=== PATIENT | male | born 1950 | race Caucasian/White ===

== ENCOUNTER 2021-09-21 18:32 | Inpatient (IN) | payer OTHER ==
[2021-09-21] MEDS ORDERED: NA CHLORIDE 0.9% 1,000 ML ONE (19:34)
[2021-09-21] MEDS ORDERED: ONDANSETRON 4 MG/2 ML VIAL ONE (19:34)
[2021-09-21 20:34] LABS: Lymphocytes % 9.3 % (15.3-44.8); MCV 97.3 fL (80-100); RBC Red Blood Cell Count 4.93 M/uL (4.33-5.43)
--- NOTE | 2021-09-21 20:38 | RAD REPORT ---
EXAM DESCRIPTION: RAD - Chest Single View - 09/21/2021 8:24 pm CLINICAL HISTORY: COUGH COMPARISON: No comparisons FINDINGS: Lines: None. Lungs: No evidence of edema or pneumonia. Low lung volumes limits evaluation of the lung bases. . Pleural: No significant pleural effusions or pneumothorax. Cardiac: The heart size is within normal limits. Bones: No acute fractures. ACDF in the cervical spine. Other: Pacemaker IMPRESSION: Low lung volumes but no definite acute abnormality identified.
[2021-09-21 20:55] LABS: Bilirubin Total 0.8 mg/dL (0.2-1.0); Potassium 3.4 mmol/L (3.5-5.1); Protein, Total 8.4 g/dL (6.4-8.2); Troponin High Sensitivity 5.4 pg/mL (<58.9)
[2021-09-21] MEDS ORDERED: PROMETHAZINE INJ 25 MG/ML AMP ONE ×2 (21:29→23:02)
--- NOTE | 2021-09-21 22:10 | RAD REPORT ---
EXAM DESCRIPTION: CTAbdomen Pelvis W Contrast - 09/21/2021 9:51 pm CLINICAL HISTORY: Abdominal pain, acute, nonlocalized COMPARISON: No comparisons TECHNIQUE: CT of the abdomen and pelvis was performed. All CT scans are performed using dose optimization technique as appropriate and may include automated exposure control or mA/KV adjustment according to patient size. FINDINGS: Lower chest: Multi-vessel coronary artery disease. Mild circumferential thickened distal e sophagus. Liver: No acute abnormality or suspicious lesions. Biliary: No biliary ductal dilatation. Stomach: No significant focal abnormality. Duodenum: No significant focal abnormality. Pancreas: No significant abnormality. Spleen: No significant abnormality. Adrenal: No suspicious lesions. Kidney/ureter: No hydronephrosis. No renal calculi. Retroperitoneum: No retroperitoneal adenopathy. Vascular: 3.2 cm infrarenal abdominal aortic aneurysm. Atherosclerosis . Bowel: No significant focal abnormality. Peritoneum: No ascites or free air. Small fat containing inguinal hernias. Bladder: Partially eccentric circumferential bladder wall thickening. This may be related to chronic bladder outlet obstruction or chronic infection or inflammation. Reproductive: No adnexal masses. Bones: No acute fracture. L4-L5 fusion. Other: Epidural pain pump in the right hemiabdomen. IMPRESSION: No acute intra-abdominal or pelvic finding. Moderately thickened distal esophagus which may reflect esophagitis. Endoscopy could better evaluate. Other incidental findings as noted above.
[2021-09-21] MEDS ORDERED: PANTOPRAZOLE 40 MG INJ ONE (23:02)
[2021-09-21 23:23] LABS: Urine Blood 1+ (Negative); Urine Glucose Trace (Negative); Urine Protein 2+ (Negative); Urine pH 5.5 (5.0-7.0)
--- NOTE | 2021-09-22 00:30 | EDPHYS ---
Physician Documentation [facility] Name: Edison Sow Age: 71 yrs Sex: Male : 1950 Arrival Date: 09/21/2021 Time: 19:06 Bed 30 Private MD: ED Physician Fredi Curtis HPI: 09/21 19:48 This 71 yrs old Male presents to ER via Unassigned with complaints of Abdominal Pain, rn nausea/vomiting/diarrhea. 19:48 The patient presents to the emergency department with nausea, vomiting, diarrhea, rn abdominal pain. Onset: The symptoms/episode began/occurred today. Possible causes: unknown. The symptoms are aggravated by nothing. The symptoms are alleviated by nothing. Associated signs and symptoms: Pertinent positives: abdominal pain, diarrhea, nausea, vomiting, Pertinent negatives: fever, GI bleeding. Severity of symptoms: At their worst the symptoms were moderate in the emergency department the symptoms are unchanged. The patient has not experienced similar symptoms in the past. The patient has not recently seen a physician. Pt reports 1 day of nausea/vomiting/diarrhea, generalized weakness and malaise. No sick contacts. not sick at home. + abd cramping. Reports had mild chest pain earlier today as well. NO sob. + cough.. Historical: - Allergies: 20:13 Jkguvqs-KUK-[id number] Reductase Inhibitors; eb1 - Immunization history:: Adult Immunizations up to date. - Family history:: not pertinent. - Social history:: Patient/guardian denies using Smoking status: unknown. - Hospitalizations: : No recent hospitalization is reported. ROS: 19:48 Constitutional: + chills and myalgias Eyes: Negative for injury, pain, redness, and internal medicine nurse, Neck: Negative for injury, pain, and swelling, Cardiovascular: Negative for palpitations, and edema, Respiratory: Negative for shortness of breath, wheezing, and pleuritic chest pain, Abdomen/GI: Negative for constipation Back: Negative for injury and pain, : Negative for injury, bleeding, discharge, and swelling, MS/Extremity: Negative for injury and deformity, Skin: Negative for injury, rash, and discoloration, Neuro: Negative for numbness, tingling, and seizure. Exam: 19:48 Constitutional: This is a well developed, well nourished patient who is awake, alert, rn and in no acute distress. HOlding emesis bag, shaking. Head/Face: Normocephalic, atraumatic. Eyes: Periorbital areas with no swelling, redness, or edema. ENT: dry MM Neck: Trachea midline, no thyromegaly or masses palpated, and no cervical lymphadenopathy. Supple, full range of motion without nuchal rigidity, or vertebral point tenderness. No Meningismus. Cardiovascular: Tachycardic, regular. No pulse deficits. Respiratory: No increased work of breathing, no retractions or nasal flaring. Abdomen/GI: Soft, mild mid abd tenderness, no rebound Skin: Warm, dry MS/ Extremity: Pulses equal, no cyanosis. Neuro: Awake and alert, GCS 15, oriented to person, place, time, and situation. Cranial nerves II-XII grossly intact. Motor strength 4/5 in all extremities. Sensory grossly intact. Vital Signs: 20:12 BP 160 / 88; Pulse 84; Resp 18; Temp 99.6; Pulse Ox 98% ; Pain 5/10; eb1 22:30 BP 155 / 70; Pulse 90; Resp 20; Temp 99.2; Pulse Ox 96% ; eb1 23:48 Pulse 86; Resp 18; Temp 99.0; Pulse Ox 95% ; eb1 09/22 02:00 BP 144 / 90; Pulse 83; Resp 20; Temp 99.0; Pulse Ox 100% ; Pain 0/10; eb1 MDM: 09/21 19:07 Patient medically screened. rn 22:54 ED course: Pt still throwing up, dark brown emesis, no blood. Will send for rn Gastroccult. H/H normal. states long hx of acid problems, supposed to take omeprazole but only takes it as needed. . 09/22 00:26 Differential diagnosis: gastritis, esophagitis, gastritis, ulceration, UGIB. Data rn reviewed: vital signs, nurses notes, lab test result(s), radiologic studies, CT scan, and as a result, I will admit patient. Counseling: I had a detailed discussion with the patient and/or guardian regarding: the historical points, exam findings, and any diagnostic results supporting the discharge/admit diagnosis, lab results, radiology results, the need to transfer to another facility, for higher level of care, [facility] does not immediately have the required specialist. Response to treatment: There is no appreciated change of the patient's symptoms at this time. ED course: Pt still throwing up, Gastroccult + for blood, dark emesis, no gross blood here, states EMS told her they saw blood in emesis when they picked him up. Will have to transfer given no GI here, intractable vomiting, and coffee ground emesis. . 00:52 ED course: Spoke with hospitalist at [facility], does not think this warrants a turn supervisor, states does not need GI consultation emergently and can be medically managed. Requests patient be admitted to our hospital and that transfer canceled. . 09/21 19:15 Order name: CBC with Diff; Complete Time: :45 09/21 19:15 Order name: CMP; Complete Time: :45 09/21 19:15 Order name: Lipase; Complete Time: :45 09/21 19:15 Order name: Urine Microscopic Only; Complete Time: 00:57 09/21 19:15 Order name: SARS-COV-2 RT PCR (Document "Date of Onset" if Symptomatic); Complete Time: rn :45 09/21 19:15 Order name: Flu; Complete Time: :45 09/21 19:15 Order name: CT Abd/Pelvis - IV Contrast Only; Complete Time: 22:15 09/21 19:15 Order name: Troponin High Sensitivity; Complete Time: :45 09/21 19:15 Order name: XRAY Chest (1 view); Complete Time: 21:45 09/21 23:23 Order name: Urine Dipstick-Ancillary; Complete Time: 23:28 EDND 09/22 00:12 Order name: Gastric Occult Blood; Complete Time: 00:22 [facility] 09/22 01:21 Order name: CT Head Brain wo Cont rn 09/21 19:15 Order name: IV Saline Lock; Complete Time: 19:39 rn 09/21 19:15 Order name: Labs collected and sent; Complete Time: 20:27 rn 09/21 19:15 Order name: Urine Dipstick-Ancillary (obtain specimen); Complete Time: 23:25 rn 09/21 19:15 Order name: EKG; Complete Time: 19:15 rn 09/21 19:15 Order name: EKG - Nurse/Tech; Complete Time: 23:24 rn 09/21 19:15 Order name: O2 Sat Monitoring; Complete Time: : rn 09/21 19:15 Order name: Cardiac monitoring; Complete Time: : rn 09/21 22:50 Order name: Gastrocult; Complete Time: 23:24 rn Administered Medications: 09/21 19:35 Drug: Zofran (Ondansetron) 4 mg Route: IVP; Site: left antecubital; eb1 22:45 Follow up: Response: Nausea is decreased eb1 19:35 Drug: NS 0.9% 1000 ml Route: IV; Rate: 1000 ml; Site: left antecubital; eb1 21:32 Drug: Phenergan (promethazine) 12.5 mg Route: IVP; Site: left antecubital; eb1 22:44 Follow up: Response: Nausea unchanged eb1 23:02 Drug: ProTONIX (pantoprazole) 40 mg Route: IVP; Site: left antecubital; eb1 23:49 Follow up: Response: Nausea is decreased eb1 23:03 Drug: Phenergan (promethazine) 12.5 mg Route: IVP; Site: left antecubital; eb1 23:49 Follow up: Response: Nausea is decreased eb1 09/22 01:19 Drug: ProTONIX (pantoprazole) 8 mg/hr Route: IV; Rate: 25 ml/hr; Site: left antecubital;eb1 01:39 Drug: Demerol (meperidine) 25 mg Route: IVP; Site: left antecubital; eb1 02:11 Follow up: Response: Pain is decreased eb1 01:39 Drug: Tylenol 650 mg Route: PO; eb1 02:11 Follow up: Response: Pain is decreased eb1 Disposition Summary: 09/22/21 01:00 Hospitalization Ordered Hospitalization Status: Observation rn Provider: Jerman Curtis rn Location: Telemetry/MedSurg (observation) rn Condition: Stable(09/22/21 01:00) rn Problem: new(09/22/21 01:00) rn Symptoms: have improved(09/22/21 01:00) rn Bed/Room Type: Standard rn Room Assignment: 201(09/22/21 02:40) cg Diagnosis - Intractable vomiting rn - Esophagitis, unspecified rn - Gastro-esophageal reflux disease with esophagitis rn Forms: - Medication Reconciliation Form rn - SBAR form rn Signatures: Dispatcher [employer] EDMS Fredi Curtis MD MD rn Garcia, Cindy, RN RN cg Basinger, Emily RN RN eb1 Corrections: (The following items were deleted from the chart) 09/21 19:52 19:48 Constitutional: This is a well developed, well nourished patient who is awake, rn alert, and in no acute distress. Head/Face: Normocephalic, atraumatic. Eyes: Periorbital areas with no swelling, redness, or edema. ENT: dry MM Neck: Trachea midline, no thyromegaly or masses palpated, and no cervical lymphadenopathy. Supple, full range of motion without nuchal rigidity, or vertebral point tenderness. No Meningismus. Cardiovascular: Tachycardic, regular. No pulse deficits. Respiratory: No increased work of breathing, no retractions or nasal flaring. Abdomen/GI: Soft, mild mid abd tenderness, no rebound Skin: Warm, dry MS/ Extremity: Pulses equal, no cyanosis. Neuro: Awake and alert, GCS 15, oriented to person, place, time, and situation. Cranial nerves II-XII grossly intact. Motor strength 4/5 in all extremities. Sensory grossly intact. rn 09/22 00:58 00:29 rn rn 00: 00:29 [facility] rn rn :58 00:29 Higher level of care rn rn :58 00:29 Stable rn rn :58 00:29 new rn rn : 00:29 are unchanged rn rn : 00:29 GI Bleed/ Gastrointestinal hemorrhage, unspecified rn rn :58 00:29 Intractable vomiting rn rn 02:40 01:00 rn daniel
--- NOTE | 2021-09-22 00:30 | ER ---
Nurse's Notes [facility] Name: Edison Sow Age: 71 yrs Sex: Male : 1950 Arrival Date: 09/21/2021 Time: 19:06 Bed 30 Private MD: Diagnosis: Intractable vomiting;Esophagitis, unspecified;Gastro-esophageal reflux disease with esophagitis Presentation: 09/21 19:20 Method Of Arrival: EMS eb1 19:20 Chief complaint: Patient states: patient states they have had nausea and vomitting for eb1 the past few days, but symptoms increased this afternoon. Coronavirus screen: Client denies travel out of the [place] in the last 14 days. At this time, the client does not indicate any symptoms associated with coronavirus-19. Ebola Screen: Patient denies exposure to infectious person. Onset of symptoms was September 21, 2021. 22:42 Initial Sepsis Screen: Does the patient meet any 2 criteria? No. Patient's initial eb1 sepsis screen is negative. Does the patient have a suspected source of infection? No. Patient's initial sepsis screen is negative. Risk Assessment: Do you want to hurt yourself or someone else? Patient reports no desire to harm self or others. 09/22 00:56 Acuity: UVALDO 3 as6 Historical: - Allergies: 09/21 20:13 Ftcxsks-VUU-PzO Reductase Inhibitors; eb1 - Immunization history:: Adult Immunizations up to date. - Family history:: not pertinent. - Social history:: Patient/guardian denies using Smoking status: unknown. - Hospitalizations: : No recent hospitalization is reported. Screenin:41 Abuse screen: Denies threats or abuse. Denies injuries from another. Nutritional eb1 screening: No deficits noted. Tuberculosis screening: No symptoms or risk factors identified. Fall Risk None identified. Assessment: 19:20 General: Appears in no apparent distress. uncomfortable, well groomed, Behavior is eb1 cooperative, appropriate for age, anxious, Reports feeling ill for 1-2 days, fatigue for 1-2 days. Pain: Denies pain. Neuro: No deficits noted. Cardiovascular: No deficits noted. Respiratory: No deficits noted. GI: Pt is actively vomiting clear fluid, Bowel sounds present X 4 quads. Abd is soft and non tender X 4 quads. Reports diarrhea, nausea, vomiting. : No deficits noted. No signs and/or symptoms were reported regarding the genitourinary system. EENT: No deficits noted. No signs and/or symptoms were reported regarding the EENT system. Derm: No deficits noted. No signs and/or symptoms reported regarding the dermatologic system. Musculoskeletal: No deficits noted. No signs and/or symptoms reported regarding the musculoskeletal system. 23:49 Reassessment: Patient appears in no apparent distress at this time. Patient and/or eb1 family updated on plan of care and expected duration. Pain level reassessed. Patient denies pain at this time. Patient states symptoms have improved. 09/22 02:00 Reassessment: No changes from previously documented assessment. Patient and/or family eb1 updated on plan of care and expected duration. Pain level reassessed. Patient states symptoms have improved. Vital Signs: 09/21 20:12 BP 160 / 88; Pulse 84; Resp 18; Temp 99.6; Pulse Ox 98% ; Pain 5/10; eb1 22:30 BP 155 / 70; Pulse 90; Resp 20; Temp 99.2; Pulse Ox 96% ; eb1 23:48 Pulse 86; Resp 18; Temp 99.0; Pulse Ox 95% ; eb1 09/22 02:00 BP 144 / 90; Pulse 83; Resp 20; Temp 99.0; Pulse Ox 100% ; Pain 0/10; eb1 ED Course: 09/21 19:06 Patient arrived in ED. tw5 19:07 Fredi Curtis MD is Attending Physician. rn 20:26 XRAY Chest (1 view) In Process Unspecified. EDMS 20:27 Troponin High Sensitivity Sent. eb1 20:27 CMP Sent. eb1 20:27 CBC with Diff Sent. eb1 20:27 Lipase Sent. eb1 21:52 CT Abd/Pelvis - IV Contrast Only In Process Unspecified. EDMS 22:41 No provider procedures requiring assistance completed. Inserted saline lock: 20 gauge eb1 in left antecubital area, using aseptic technique. 22:41 Arm band placed on right wrist. eb1 22:44 Patient has correct armband on for positive identification. Bed in low position. Call eb1 light in reach. Side rails up X2. Adult w/ patient. 23:25 Urine Microscopic Only Sent. eb1 09/22 00:32 initiated a transfer with Chelita from [facility] Transfer [place]. mw2 00:[address] Curtis with the Doctor from [facility]. mw2 00:57 Triage completed. as6 00:58 Jerman Curtis MD is Hospitalizing Provider. rn 01:58 CT Head Brain wo Cont In Process Unspecified. EDMS 03:29 Patient admitted, IV remains in place. eb1 Administered Medications: 09/21 19:35 Drug: Zofran (Ondansetron) 4 mg Route: IVP; Site: left antecubital; eb1 22:45 Follow up: Response: Nausea is decreased eb1 19:35 Drug: NS 0.9% 1000 ml Route: IV; Rate: 1000 ml; Site: left antecubital; eb1 21:32 Drug: Phenergan (promethazine) 12.5 mg Route: IVP; Site: left antecubital; eb1 22:44 Follow up: Response: Nausea unchanged eb1 23:02 Drug: ProTONIX (pantoprazole) 40 mg Route: IVP; Site: left antecubital; eb1 23:49 Follow up: Response: Nausea is decreased eb1 23:03 Drug: Phenergan (promethazine) 12.5 mg Route: IVP; Site: left antecubital; eb1 23:49 Follow up: Response: Nausea is decreased eb1 09/22 01:19 Drug: ProTONIX (pantoprazole) 8 mg/hr Route: IV; Rate: 25 ml/hr; Site: left antecubital;eb1 01:39 Drug: Demerol (meperidine) 25 mg Route: IVP; Site: left antecubital; eb1 02:11 Follow up: Response: Pain is decreased eb1 01:39 Drug: Tylenol 650 mg Route: PO; eb1 02:11 Follow up: Response: Pain is decreased eb1 Medication: 03:30 VIS not applicable for this client. eb1 Outcome: 00:29 ER care complete, transfer ordered by . rn 01:00 Decision to Hospitalize by Provider. rn 03:29 Admitted to Med/surg family with patient, via stretcher, with chart, Report called to eb Sheila 03:29 Condition: improved 03:29 Condition: good 03:29 Instructed on the need for admit, Demonstrated understanding of instructions. 03:30 Patient left the ED. eb1 Signatures: Dispatcher [employer] EDFredi Mckeon MD MD rn Westbrook, Spike mw2 Miri Rose RN RN eb1 Glenys Clement tw5 Ap Parra RN RN as6
[2021-09-22] MEDS ORDERED: NA CHLORIDE 0.9% 250 ML ONE (00:38)
[2021-09-22] MEDS ORDERED: PANTOPRAZOLE 40 MG INJ ONE (00:38)
[2021-09-22 00:48] LABS: Urine Bacteria <20 /HPF (<20); Urine RBC <5 /HPF (None Seen)
[2021-09-22] MEDS ORDERED: MEPERIDINE HCL 25 MG/ML SYR ONE (01:40)
[2021-09-22] MEDS ORDERED: ACETAMINOPHEN 325 MG TABLET ONE (01:40)
--- NOTE | 2021-09-22 02:24 | P.HP ---
Certification for Inpatient Patient admitted to: Inpatient With expected LOS: >2 Midnights Patient will require the following post-hospital care: None Practitioner: I am a practitioner with admitting privileges, knowledge of patient current condition, hospital course, and medical plan of care. Services: Services provided to patient in accordance with Admission requirements found in Title 42 Section 412.3 of the Code of Federal Regulations <Pablito De Luna - Last Filed: 09/22/21 02:20> Patient History Date of Service: 09/22/21 Reason for admission: Intractable vomiting History of Present Illness: 71-year-old male with history of hypertension, hypothyroidism, chronic pain presents to the emergency department for vomiting. Patient's at bedside reports he has these episodes few times per month but they usually resolve on their own and are not as violent vomiting. He supposed to be on omeprazole daily but takes it only as needed and has not been taking it recently. He has had an EGD in the past but it was reportedly a few years ago, they are unsure of the results. He received multiple rounds of antiemetic medications in the emergency department including Reglan, Phenergan, Zofran as well as Protonix IV, he still having vomiting and nausea. He had a CT of the abdomen pelvis with IV contrast which revealed no acute intra-abdominal or pelvic findings moderately thickened distal esophagus which may reflect esophagitis. Patient with hemoglobin 16.2 hematocrit 48 his vomit has been brown, ED sent off for Gastroccult test, it was positive. ED provider initially initiated transfer to [facility] for concern for intractable vomiting, esophagitis/possible slow bleed but was declined, receiving facility stated patient can be effectively medically managed and only to transfer for gross hematemesis. Will admit here for further evaluation and management of intractable vomiting, suspected esophagitis. Discussed with patient and family at length that GI is not available at our facility and if there is a significant change in his clinical conditions he will require transfer they verbalized understanding to this, also discussed at length the need for close follow-up with GI for endoscopy at a later date for further evaluation of esophagitis. Patient does admit to drinking daily around 3 whiskey drinks per day last drink was 09/20/2021 in the evening. - Past Medical/Surgical History -: Hypertension -: Hypothyroidism -: Alcohol abuse -: GERD -: chronic pain -: Pain pump -: Pacemaker -: multiple back surgeries Psychosocial/ Personal History: Patient lives at home with his is retired - Family History Family History: Reviewed- Non-Contributory - Social History Smoking Status: Never smoker Alcohol use: Yes CD- Drugs: No Caffeine use: Yes Place of Residence: Home <CalixtoPablito Givens - Last Filed: 09/22/21 02:20> Date of Service: 09/22/21 <Jerman Curtis - Last Filed: 09/22/21 21:33> Review of Systems 10-point ROS is otherwise unremarkable Gastrointestinal: Nausea, Vomiting <CalixtoPablito Givens - Last Filed: 09/22/21 02:20> Physical Examination - Physical Exam General: Alert, In no apparent distress, Oriented x3 HEENT: Atraumatic, PERRLA, Mucous membr. moist/pink, EOMI, Sclerae nonicteric Neck: Supple, 2+ carotid pulse no bruit, No LAD, Without JVD or thyroid abnormality Respiratory: Clear to auscultation bilaterally, Normal air movement Cardiovascular: Regular rate/rhythm, Normal S1 S2 Gastrointestinal: Normal bowel sounds, No tenderness Musculoskeletal: No tenderness Integumentary: No rashes Neurological: Normal speech, Normal strength at 5/5 x4 extr, Normal tone, Normal affect - Studies Laboratory Data (last 24 hrs) 09/21/21 20:20: Sodium 138, Potassium 3.4 L, BUN 21 H, Creatinine 1.40 H, Glucose 115 H, Total Bilirubin 0.8, AST 24, ALT 35, Alkaline Phosphatase 94, Lipase 211 09/21/21 20:20: WBC 11.2 H, Hgb 16.2, Hct 48.0, Plt Count 212 Microbiology Data (last 24 hrs): 09/22/21 23:15 Gastric Aspirate Gastric Occult Blood - Final 09/21/21 20:20 Nasopharnyx Influenza Type A Antigen Screen - Final 09/21/21 20:20 Nasopharnyx Influenza Type B Antigen Screen - Final <Pablito De Luna - Last Filed: 09/22/21 02:20> - Studies Microbiology Data (last 24 hrs): 09/21/21 20:20 Nasopharnyx Influenza Type A Antigen Screen - Final 09/21/21 20:20 Nasopharnyx Influenza Type B Antigen Screen - Final <Jerman Curtis - Last Filed: 09/22/21 21:33> Assessment and Plan - Plan Assessment: Intractable vomiting underlying GERD/esophagitis Hypertension Hypothyroidism Chronic pain Chronic alcohol abuse Plan: Intractable vomiting underlying GERD/esophagitis: N.p.o., IVF, continue with Protonix drip at this time. Monitor H&H closely, discussed with patient and at length need for further outpatient evaluation with endoscopy for further evaluation of esophagitis possibility of García's esophagus or other conditions. Hypertension: As needed IV antihypertensive until patient is tolerating p.o. Continue home meds when appropriate Hypothyroidism: Continue medications when appropriate Chronic pain: Patient with pain pump in place Chronic alcohol abuse: Patient usually has 3 alcoholic beverages per night last drink was on 09/20/2021 in the evening, denies previous episodes of alcohol withdrawal, will monitor closely for signs of alcohol withdrawal provide as needed benzodiazepines. DVT PPX: SCD Code status: Full Discharge Plan: Home Plan to discharge in: 48 Hours - Advance Directives Does patient have a Living Will: No Does patient have a Durable POA for Healthcare: No - Code Status/Comfort Care Code Status Assessed: Yes (Full code) Critical Care: No Time Spent Managing Pts Care (In Minutes): 70 <Pablito De Luna - Last Filed: 09/22/21 02:20> - Plan Plan of care reviewed and agree as noted above. Patient seen and examined this morning on rounds. Patient continues with nausea, no emesis but with increased oral secretions. does not feel well mildly tremulous at times, states he gets this way when he throws up face flushed - states he gets this way some times as well starting to get tachycardic, hypertensive, warm has not taken his PO pain medication in nearly a day due to nausea/vomiting, and now NPO hgb stable continue protonix drip, add IV pain medication PRN possibly having alcohol or opioid withdrawal leading to tachycardia / hypertension, pain could be contributing factor as well continue to monitor closely <Jerman Curtis - Last Filed: 09/22/21 21:33>
[2021-09-22] MEDS ORDERED: PANTOPRAZOLE INJ 80 MG in NA CHLORIDE 0.9% 250 ML IV SCH ×2 (03:00→11:00)
[2021-09-22] MEDS: D5 0.45 NS 1,000 ML IV SCH ×4 (04:14→21:51)
[2021-09-22 04:21] LABS: Absolute Lymphocytes (CBC) 0.8 K/uL (0.7-4.9); Hematocrit 44.2 % (39.6-49.0); Lymphocytes % 8.5 % (15.3-44.8); MCV 98.1 fL (80-100); MPV 7.7 fL (7.6-11.3)
[2021-09-22 04:45] LABS: Albumin 3.6 g/dL (3.4-5.0); Bilirubin Total 0.6 mg/dL (0.2-1.0); Magnesium 1.6 mg/dL (1.8-2.4); Potassium 4.1 mmol/L (3.5-5.1); Protein, Total 7.5 g/dL (6.4-8.2)
[2021-09-22] MEDS ORDERED: MAGNESIUM SULFATE 1 gm IVPB 1 GM/100 ML BAG IV ONE (04:54)
[2021-09-22] MEDS ORDERED: ACETAMINOPHEN 500 MG TAB PO ONE (06:44)
--- NOTE | 2021-09-22 08:47 | EKG ---
Test Date: 2021-09-21 Test Time: 20:12:27 Procurement Professional: TARAN MEASUREMENT RESULTS: Intervals: Rate: 85 TN: 192 QRSD: 86 QT: 370 QTc: 440 Foster: P: 61 TN: 192 QRS: 41 T: 74 INTERPRETIVE STATEMENTS: Normal sinus rhythm Nonspecific ST and T wave abnormality Abnormal ECG No previous ECG available for comparison Electronically Signed On 09-22-21 08:46:53 CDT by Dante Negron
[2021-09-22] MEDS: HYDRALAZINE HCL 20 MG/ML VIAL IV PRN ×2 (09:18→19:14)
[2021-09-22] MEDS: ONDANSETRON 4 MG/2 ML VIAL IV PRN ×2 (09:33→18:20)
[2021-09-22] MEDS: PANTOPRAZOLE INJ 80 MG in NA CHLORIDE 0.9% 250 ML IV SCH ×2 (09:38→19:14)
[2021-09-22] MEDS ORDERED: MORPHINE 2 MG/ML SYR IV PRN (11:56)
[2021-09-22] MEDS ORDERED: ACETAMINOPHEN 650MG/RECT SUPP PR ONE (12:17)
[2021-09-22] MEDS: PIPER TAZO 3.375 GM in NA CHLORIDE 0.9% 100 ML IV SCH ×2 (13:30→17:45)
[2021-09-22] MEDS: HYDROMORPHONE HCL 1 MG/ML INJ IV PRN ×4 (13:31→22:51)
--- NOTE | 2021-09-22 13:55 | RAD REPORT ---
EXAM DESCRIPTION: CT head without IV contrast CLINICAL HISTORY: 71 years Male Headache, new or worsening TECHNIQUE: Multiple axial CT images of the brain were performed followed by sagittal and coronal rec onstructed images. The CT study is performed according to ALARA (as low as reasonably achievable) or ALARA/IMAGE GENTLY, with automatic adjustment of mA and/or kV according to patient size. Performed on: 09/22/2021 at 1:41 AM COMPARISON: Head CT performed on 10/15/2014. FINDINGS: Brain: There is no evidence of mass, acute mass effect or midline shift. There are no acut e extra-axial fluid collections. There is no evidence of acute intracranial hemorrhage. The cerebra l sulci and ventricles are prominent consistent with mild cerebral volume loss. There are scattered a reas of decreased attenuation within the subcortical and periventricular white matter most likely due to mild chronic microangiopathy. Incidentally noted is a partially empty sella turcica. Paranasal Sinuses and Mastoids: There is trace mucosal thickening of the paranasal sinuses. The masto id air cells are clear. Orbits: The orbital contents are grossly unremarkable. Bones: No acute osseous abnormalities are identified. Soft Tissues: No focal soft tissue abnormalities are identified. IMPRESSION: 1. There is no evidence of acute intracranial pathology. Overall, no significant alaniz e when compared to the prior study. 2. Mild cerebral volume loss with findings compatible with chronic microangiopathy. Electronically signed by: Jesica Guerrier DO 09/22/2021 4:50 AM CDT Due to temporary technical issues with the PACS/Fluency reporting system, reports are being signed by the in house radiologists without review as a courtesy to insure prompt reporting. The interpreting radiologist is fully responsible for the content of the report.
--- NOTE | 2021-09-22 14:33 | EKG ---
Test Date: 2021-09-22 Test Time: 12:09:50 Chairman And Chief Executive Officer: UJNAID MEASUREMENT RESULTS: Intervals: Rate: 110 IN: 184 QRSD: 82 QT: 358 QTc: 484 [place]: P: 64 IN: 184 QRS: 50 T: 64 INTERPRETIVE STATEMENTS: Sinus tachycardia ST abnormality, possible digitalis effect Abnormal ECG Compared to ECG 09/21/2021 20:12:27 Sinus rhythm no longer present ST (T wave) deviation still present Electronically Signed On 09-22-21 14:32:49 CDT by Cheo Red
[2021-09-22] MEDS ORDERED: FLUMAZENIL 0.1 MG/ML (5 mL VIAL) IV PRN (14:40)
[2021-09-22 15:25] LABS: Hematocrit 46.7 % (39.6-49.0)
[2021-09-22] MEDS: LORazepam 2 MG/ML VIAL IV PRN ×5 (15:34→22:50)
--- NOTE | 2021-09-22 17:04 | RAD REPORT ---
EXAM DESCRIPTION: CT - Thorax Wo Con - 09/22/2021 4:37 pm CLINICAL HISTORY: possible esophageal perforation COMPARISON: No comparisons FINDINGS: Chest Wall: No suspicious thyroid nodules or pathologic lymphadenopathy. Left upper chest wall pacemaker. Lungs: No acute abnormality. Pleura: No significant effusions or pneumothorax. Mediastinum/arnulfo: No pathologic lymphadenopathy. Mild circumferential thickened distal esophagus. Fol lowing administration of enteric contrast. No evidence of esophageal perforation is identified. Pulmonary arteries/Aorta: Limited evaluation without contrast. No aortic aneurysm. Heart: No significant pericardial effusion. Normal heart size. Upper abdomen: No acute abnormality. Bones: No acute abnormality. All CT scans are performed using dose optimization technique as appropriate and may include automated exposure control or mA/KV adjustment according to patient size. IMPRESSION: No evidence of esophageal perforation. Specifically, no pneumomediastinum. No extra esop hageal enteric contrast identified to confirm the presence of a perforation. Thickened distal esophag us may reflect esophagitis. .
--- NOTE | 2021-09-22 18:47 | CON ---
Date of Consultation: 09/22/2021 Reason For Consultation: Elevated troponin and chest pain. History Of Present Illness: A 71-year-old male with history of hypertension, hypothyroidism, chronic pain, has pain pump, presented to the emergency room with intractable vomiting, unable to keep anyth ing down, some abdominal discomfort. The patient had an episode of chest pain. Troponin was checked and was borderline; however, an EKG without acute ST elevation. The patient is not known to have an y history of cardiac disease and also he spiked a fever of 102. At the time of my evaluation, his ch est pain has subsided. Past Medical History: As outlined above in HPI. Medications: Refer to reconciliation sheet for detailed list. Allergies: STATINS. Family History: No premature coronary artery disease or cancer. Social History: Does not smoke or drink. Does not use any drugs. Review of Systems: All systems reviewed and they are negative except for mentioned in HPI. Physical Examination: Vital Signs: Temperature 102.0, heart rate is 102, breathing at 18, blood pressure 137/62, saturatin g 100%. General: This is an elderly male, appears uncomfortable due to nausea and constant vomiting. No luz arent distress. Head and Neck: Pupils are equal, reactive to light. Intact eye movements. No JVD. No cervical lym phadenopathy. Neck is supple. Thyroid is not enlarged. Lungs: Clear to auscultation bilaterally. No rhonchi, wheezing, or crackles. No accessory muscle u se. Heart: Regular rate and rhythm. No extra sounds. Abdomen: Soft, nontender. Bowel sounds positive. No organomegaly. No masses or hernia. No rigidi ty or rebound. Extremities: No clubbing or cyanosis. Intact pulses. Skin: No rash. Neurologic: Alert, awake, oriented x3. No acute focal deficits appreciated. Investigations: Initial troponin was 5.4, now it is 82. Creatinine is 1.13. White blood cell count is 9.1, hemoglobin 15.2. EKG without ST elevation. Assessment And Recommendations: 1.Chest pain with borderline elevated troponin. This could be non-ST elevation myocardial infarctio n versus demand. The patient is having fever and intractable vomiting. My recommendations would be to trend 2 more sets of troponin, obtain echocardiogram, and if the troponin rises to a significant l evel, then I would recommend anticoagulation, recommend also to start aspirin. The patient, however, is not able to tolerate things by mouth and aspirin 300 mg per rectum can be given at this time unti l he is able to take food by mouth. Further recommendation will be based on the troponin trends and echocardiogram. 2.Intractable vomiting. CT scan is without any intraabdominal pathology. At this point, maybe I ke ep the patient n.p.o., on gentle hydration and trend troponin and this could be part of acute coronar y syndrome. Once the fevers subsides, then, we will plan for coronary angiogram. /ODETTE Voice ID: [id number] Report ID: [id number]
--- NOTE | 2021-09-22 21:38 | P.PN ---
Date of Service: 09/22/21 Patient developed fever with tachycardia, hypertension; looks uncomfortable unclear source, possibly esophagitis fever may be secondary to withdrawal lactate, cultures ordered start zosyn - cover for enteric pathogens, possible aspiration given emesis Dr. Young consulted, obtain CT Chest, r/o perforation / aspiration Shortly after developing fever. patient reported left chest pain - at anterior axillary line ~5-6th rib area, tender to palpation slightly EKG without ischemic changes, troponin up to 80 unclear if NSTEMI vs demand ischemia in setting of fever / sepsis / withdrawal cardiology consulted - echo ordered, trend trop patient transferred to ICU for closer monitoring ativan PRN for EtOH withdrawal
--- NOTE | 2021-09-22 21:45 | P.INFCA ---
Sepsis Focused Assessment - Focused Assessment Complete? Sepsis Focused Assessment Completed?: Yes - Sepsis Screen Result Severe Sepsis: Negative Septic Shock: Negative - Vital Signs Reviewed: Yes Heart rate: 101 Blood Pressure: 144/89 Respiratory Rate: 18 O2 Sat by Pulse Oximetry: 98 - Examination Date exam was performed: 09/22/21 Time exam was performed: 16:00 Heart: Tachycardia Lungs: Clear bilaterally Peripheral pulses: 3+ Normal Peripheral pulse location: Radial Capillary refill: <2 Seconds Skin examination: Normal turgor, Flushed (face (improved)), Not mottled
[2021-09-23] MEDS: LORazepam 2 MG/ML VIAL IV PRN ×10 (00:40→23:44)
[2021-09-23] MEDS: PIPER TAZO 3.375 GM in NA CHLORIDE 0.9% 100 ML IV SCH ×3 (00:43→16:40)
[2021-09-23] MEDS: ONDANSETRON 4 MG/2 ML VIAL IV PRN ×2 (00:43→22:10)
[2021-09-23] MEDS: HYDRALAZINE HCL 20 MG/ML VIAL IV PRN ×3 (02:41→22:25)
[2021-09-23] MEDS ORDERED: LORazepam 2 MG/ML VIAL IV ONE ×2 (03:24→05:38)
[2021-09-23] MEDS: D5 0.45 NS 1,000 ML IV SCH (03:41)
[2021-09-23 05:01] LABS: Absolute Lymphocytes (CBC) 1.4 K/uL (0.7-4.9); Hematocrit 44.7 % (39.6-49.0); Lymphocytes % 14.7 % (15.3-44.8); MCV 99.9 fL (80-100); MPV 7.6 fL (7.6-11.3); RBC Red Blood Cell Count 4.48 M/uL (4.33-5.43)
[2021-09-23 05:19] LABS: Albumin 3.5 g/dL (3.4-5.0); Bilirubin Total 1.4 mg/dL (0.2-1.0); Potassium 3.2 mmol/L (3.5-5.1); Protein, Total 7.4 g/dL (6.4-8.2)
[2021-09-23] MEDS: PANTOPRAZOLE INJ 80 MG in NA CHLORIDE 0.9% 250 ML IV SCH ×3 (05:30→19:43)
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
[2021-09-23] MEDS: HYDROMORPHONE HCL 1 MG/ML INJ IV PRN ×5 (05:58→22:10)
[2021-09-23] MEDS: FOLIC ACID 1 MG, MULTIVITAMINS INJ 10 ML, THIAMINE HCL 100 MG in NA CHLORIDE 0.9% 1,000 ML IV SCH (08:31)
[2021-09-23] MEDS: KCL 20 MEQ/100 mL IVPB 20 MEQ/100 ML BAG IV SCH ×2 (08:56→09:56)
[2021-09-23] MEDS: ENOXAPARIN 40 MG/0.4 ML SQ SCH (08:57)
[2021-09-23] MEDS ORDERED: ACETAMINOPHEN 500 MG TAB PO PRN (16:36)
[2021-09-24] MEDS: LORazepam 2 MG/ML VIAL IV PRN ×3 (01:33→07:21)
[2021-09-24] MEDS: HYDROMORPHONE HCL 1 MG/ML INJ IV PRN ×2 (01:34→05:45)
[2021-09-24] MEDS: PIPER TAZO 3.375 GM in NA CHLORIDE 0.9% 100 ML IV SCH ×3 (01:34→17:23)
[2021-09-24] MEDS: PANTOPRAZOLE INJ 80 MG in NA CHLORIDE 0.9% 250 ML IV SCH ×2 (04:10→14:24)
[2021-09-24 04:55] LABS: Absolute Lymphocytes (CBC) 2.1 K/uL (0.7-4.9); Lymphocytes % 23.8 % (15.3-44.8); MCV 100.6 fL (80-100); MPV 7.7 fL (7.6-11.3); RBC Red Blood Cell Count 4.37 M/uL (4.33-5.43)
[2021-09-24 05:14] LABS: Albumin 3.4 g/dL (3.4-5.0); Bilirubin Total 1.8 mg/dL (0.2-1.0); Magnesium 1.8 mg/dL (1.8-2.4); Potassium 3.5 mmol/L (3.5-5.1); Protein, Total 7.3 g/dL (6.4-8.2)
[2021-09-24 05:17] VITALS: BMI 24.1
[2021-09-24] MEDS: POTASSIUM CL SA 10 MEQ TAB PO ONE ×2 (05:21→05:44)
[2021-09-24] MEDS ORDERED: MAGNESIUM SULFATE 1 gm IVPB 1 GM/100 ML BAG IV ONE (05:21)
[2021-09-24] MEDS: LEVOTHYROXINE SOD 0.075 MG TAB PO SCH ×2 (05:44→05:53)
[2021-09-24] MEDS: HYDRALAZINE HCL 20 MG/ML VIAL IV PRN (05:44)
--- NOTE | 2021-09-24 06:03 | P.PN ---
Date of Service: 09/24/21 Subjective continues with withdrawal symptoms, agitated improving ROS: unable to fully be obtained Physical Exam Gen: AOx2, confused HEENT: normal conjunctiva, sclera anicteric, facial flushing CV: sinus tachycardia: 90-110s, no murmur Pulm: clear to auscultation bilaterally, nonlabored Abd: soft, nontender, nondistended Integumentary: no rash/lesions Neuro: moves all extremities, str 5/5 x4 ext, no nuchal rigidity restraints in place Problem List Intractable vomiting underlying GERD/esophagitis acute Alcohol withdrawal NSTEMI Hypertension Hypothyroidism Chronic pain Chronic alcohol abuse hgb stable patient no longer nauseated, no vomiting x2 days can advance diet to clears - needs to be alert /following commands banana bag patient in active alcohol withdrawal - tachycardic, hypertensive, and intermittently febrile; improving no evidence of bacterial infection multiple doses of ativan given overnight; continue continue IV dilaudid, transition to home PO dilaudid regimen once taking PO resume home meds as appropriate zosyn to cover for abdominal/enteric pathogens, blood cultures negative so far chest pain 09/23, elevated troponin, possibly demand ischemia from withdrawal vs ACS; cardiology consulted folic acid, thiamine adjust IVF as needed medical restraints needed due to patient's alcohol withdrawal Code status: Full Dispo: home, ~3 days Time Spent Managing Pts Care (In Minutes): 50 Critical care time spent: 35 - managing medications, evaluating patient, discussions with family at bedside
--- NOTE | 2021-09-24 06:03 | PN ---
Date of Progress Note: 09/23/2021 Mr. Sow was seen by Dr. Red for elevated troponin. Today, the patient had 2 delirium tremens f rom alcohol withdrawal. EKG is nonspecific, but he remains hypertensive at 179/112. Echocardiogram is normal. He is on Lovenox. Troponin trended down from 233 to 182. This is not an acute coronary syndrome. His troponin elevation may be secondary to severe nausea and vomiting as well as hypertens ion. He needs his blood pressure controlled and his alcohol withdrawal controlled. No further cardi ac workup at this point. We will consider seeing him as an outpatient and have him do an outpatient stress test in the future. KLARISSA/ODETTE Voice ID: [id number] Report ID: [id number]
[2021-09-24] MEDS: ENOXAPARIN 40 MG/0.4 ML SQ SCH (07:24)
[2021-09-24] MEDS: GABAPENTIN 300 MG CAP PO SCH ×3 (07:25→20:33)
[2021-09-24] MEDS ORDERED: NA CHLORIDE 0.9% 0 ML ONE (07:28)
[2021-09-24] MEDS ORDERED: THIAMINE 200 MG/2 ML INJ ONE (07:28)
[2021-09-24] MEDS ORDERED: METOPROLOL TAR 25 MG TAB PO SCH ×2 (09:00→18:00)
[2021-09-24] MEDS ORDERED: cloNIDine HCL 0.1 MG TAB PO SCH (09:00)
[2021-09-24] MEDS: FOLIC ACID 1 MG, MULTIVITAMINS INJ 10 ML, THIAMINE HCL 100 MG in NA CHLORIDE 0.9% 1,000 ML IV SCH (09:54)
[2021-09-24] MEDS ORDERED: LORazepam 2 MG/ML VIAL IV PRN (11:11)
[2021-09-24] MEDS ORDERED: LORazepam 2 MG/ML VIAL IV SCH (12:00)
--- NOTE | 2021-09-24 14:59 | RAD REPORT ---
EXAM DESCRIPTION: US - Abdomen Exam Limited - 09/24/2021 2:25 pm CLINICAL HISTORY: eval liver/biilary tree; increased lft/bili COMPARISON: Abdomen Pelvis W Contrast dated 09/21/2021 FINDINGS: The liver demonstrates diffuse fatty infiltration.No focal liver lesion or intrahepatic bi liary dilatation. Negative for cholelithiasis or biliary ductal dilatation. No acute cholecystitis. Negative sonographi c Allison's sign. IMPRESSION: Hepatic steatosis. Negative for cholelithiasis, acute cholecystitis, or biliary ductal d ilatation.
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
--- NOTE | 2021-09-24 19:12 | CON ---
Date of Consultation: 09/22/2021 Brief History Of Present Illness: The patient is a 71-year-old male with a history of hypertension, hypothyroidism, chronic pain with a pain pump in place, cardiac history with respect to an arrhythmia , heavy history of alcohol use and abuse in the past, who presents to the hospital, confused, disorie nted and hyperthermic. The patient is currently nonverbal, but non-conversive in a meaningful way. He is confused, disoriented, and does not answer questions appropriately. His is at the bedside and helps answer questions for him. Information is obtained primarily from the patient's who i s at the bedside as well as the medical record and discussion with other providers. By report, the p atient had been having some drinking of alcohol, which is within his normal scope by description, aaron garcia. He would finish a bottle off in about a week. He would drink 3-4 glasses of this per day, sometimes increasing that for a long period of time. His states that he had a much heavier alcohol history in the past prior to her marriage to him, which was in the not too dist ant past. He had an episode of violent vomiting. He has had a few episodes before in the past of vo miting, but never to this level of severe explosive type retching with significant amount of emesis m aterial with a brownish tinge by report from the patient's . When this occurred, she called for help and ultimately the patient was brought to the hospital by ambulance by report. Since being in [facility], he remains confused. He has received antiemetic medications. Once again, he is nonconv ersant with me during my examination. He is curled up in the bed. He does answer questions, but the y are nonsensical answers. He does phonate words, but he seems confused, disoriented, and he is curr ently shivering under blankets in a somewhat position in the hospital bed. He has not had any episodes of vomiting since my presentation to him; however, apparently in the ER, he did have additio nal episode of vomiting, which was sent off for Gastroccult, which was positive for blood. In additi on, he had imaging which showed possible esophagitis during his admission. Past Medical History: Significant for hypertension, hypothyroidism, alcohol abuse, GERD, chronic damaris n. He has a pain pump. He has a pacemaker. He has had multiple back surgeries before in the past. Social History: He is and lives in a mobile RV type home setting with his . His family history is unable to be obtained. By report, he never smoked. He has the alcohol abuse history as a prabhakar, but denied recreational drug use. Review of Systems: Ten-review of systems unable to obtain. Physical Examination: Vital Signs: At the time of my examination; his BMI is 24.1. His blood pressure was 147/97, his pul se was 117, respiratory rate 18, temperature 99.0, O2 saturation was 97% on room air. General: He was confused, awake, alert, shaking and shivering. HEENT: Otherwise normocephalic. His sclerae were anicteric. His mucous membranes were somewhat dry . His oropharynx was otherwise clear with very poor dentition. Neck: Supple without JVD. Chest: Normal expansion and excursion. Cardiovascular: Tachycardic. He has a pacemaker on his chest as well, which has a well-healed scar. Otherwise, normal expansion and excursion. Abdomen: Soft, nontender, nondistended. No rebound. No guarding. No focal peritonitis. Extremities: No clubbing, cyanosis, edema. He is in a position throughout the examination, so my examination is somewhat truncated by his position. Skin: Warm and dry his. Laboratory Data: His laboratory exam revealed a white blood cell count of 9.1, his hemoglobin is 15. 2, hematocrit of 44.2, platelet count was 212. He did have an initial hemoglobin on 09/21 of 16.2. His neutrophils were 82%. His chemistry showed a sodium of 137, potassium 4.1, chloride 106, carbon dioxide 22, BUN 20, creatinine 1.13, glucose is 131, calcium 8.7. Lactic acid was 2.1 on admission. His magnesium 1.6, total bilirubin 0.6, AST 17, ALT 20, alkaline phosphatase is 82. He had a tropon in drawn which was 80.0, which is a high sensitivity troponin. His lipase on admission was 211. UA showed only 2+ ketones and 1+ blood, 2+ total protein, otherwise unremarkable. COVID was negative. He had imaging performed, which also was performed in the ER on 09/21/2021, officially read as no acu te intraabdominal pelvic findings, moderately thickened distal esophagus which may reflect esophagiti s, endoscopy could better evaluate. Other incidental findings such as L4-5 fusion, partially eccentr ic bladder wall thickening, small fat containing inguinal hernias, a 3.2 cm infrarenal aortic aneurys m, atherosclerosis. He had a chest x-ray and head CT performed as well. Head CT was officially read as no evidence of acute intracranial pathology. Overall, no significant change when compared to gemini or study. Mild cerebral volume loss with findings compatible with chronic microangiopathy. He had a chest x-ray performed as well, officially read as low lung volumes with no definite acute abnormalit y identified. I ordered a stat chest CT on the patient, which was officially read as no evidence of esophageal perforation, specifically no pneumomediastinum. No extraesophageal enteric contrast is id entified to confirm the presence of perforation. Thickened distal esophagus may reflect esophagitis. Assessment And Plan: This is a 71-year-old male, who comes in with signs of acute alcohol withdrawal with delirium tremens appearance. In addition, he has an elevation of his cardiac troponins, which appears to be elevating. I am uncertain of the etiology of this. 1.Continue medical management for the patient's delirium tremens and withdrawal symptoms per Dr. Alison millard. 2.Cardiology evaluation for possible need for intervention versus evaluation. I will defer to the c ardiologist expertise with respect to how to manage his elevation in troponin. This may be a sequela e of his overall medical condition and not necessarily a cardiovascular issue, but we will await Card iology's input to better define this. 3.With respect to endoscopic management, the patient has a history of care with Dr. Valadez. We will reach out to Dr. Horowitz, however, he may be unavailable at this time and as such, we will continue to manage the patient expectantly and reach out to Dr. Valadez for possible evaluation. 4.The patient is not in need of any emergent endoscopic procedures at this time as his hemoglobin re mained stable on several checks and does not show any hemodynamic instability or signs of varicocele or esophageal perforated bleeding such of Kina-Gutiérrez tear of any significance or any other esophag eal pathology requiring emergent investigation with endoscopy. As such, I recommend continue medical management, stabilization, and once his condition improves, he can be considered for endoscopic eval uation of his esophageal/gastric pathology when he is more stable from a surgical standpoint. I have explained the risks, benefits, and alternatives of the above stated plan to the patient's . She agrees to proceed as indicated. Thank you for this interesting consult. BEATA Voice ID: [id number] Report ID: [id number]
[2021-09-24] MEDS: METOPROLOL TAR 25 MG TAB PO SCH (20:34)
[2021-09-25] MEDS: PIPER TAZO 3.375 GM in NA CHLORIDE 0.9% 100 ML IV SCH ×3 (00:17→16:05)
[2021-09-25] MEDS: PANTOPRAZOLE INJ 80 MG in NA CHLORIDE 0.9% 250 ML IV SCH (00:18)
[2021-09-25 05:20] LABS: Potassium 3.6 mmol/L (3.5-5.1)
[2021-09-25] MEDS: LEVOTHYROXINE SOD 0.075 MG TAB PO SCH (05:38)
[2021-09-25] MEDS: ENOXAPARIN 40 MG/0.4 ML SQ SCH (08:00)
[2021-09-25] MEDS: GABAPENTIN 300 MG CAP PO SCH ×3 (08:01→21:11)
[2021-09-25] MEDS: METOPROLOL TAR 25 MG TAB PO SCH ×2 (08:01→21:11)
[2021-09-25] MEDS: HYDROMORPHONE HCL 1 MG/ML INJ IV PRN ×2 (08:24→12:09)
[2021-09-25 08:30] LABS: Albumin 2.8 g/dL (3.4-5.0); Bilirubin Direct 0.5 mg/dL (0-0.2); Bilirubin Total 1.4 mg/dL (0.2-1.0); Protein, Total 6.3 g/dL (6.4-8.2)
[2021-09-25] MEDS ORDERED: POTASSIUM CL SA 10 MEQ TAB PO ONE (09:00)
[2021-09-25] MEDS ORDERED: PANTOPRAZOLE INJ 80 MG in NA CHLORIDE 0.9% 250 ML IV SCH (09:00)
[2021-09-25] MEDS: FOLIC ACID 1 MG, MULTIVITAMINS INJ 10 ML, THIAMINE HCL 100 MG in NA CHLORIDE 0.9% 1,000 ML IV SCH (09:07)
[2021-09-25] MEDS: cloNIDine HCL 0.1 MG TAB PO SCH ×3 (10:09→21:12)
--- NOTE | 2021-09-25 13:47 | P.PN ---
Date of Service: 09/25/21 Subjective did well overnight. alert/oriented Did not require any Ativan overnight Continues with chronic pain, denies any new pains, no nausea/vomiting, no diarrhea States he is hungry and wants more than sips of water ROS: 10 point review of systems as noted above, otherwise negative Physical Exam Gen: AOx3, NAD HEENT: normal conjunctiva, sclera anicteric, mild facial flushing CV: Regular rate and rhythm, no edema Pulm: clear to auscultation bilaterally, nonlabored Abd: soft, nontender, nondistended Integumentary: no rash/lesions Neuro: moves all extremities, str 5/5 x4 ext, no nuchal rigidity Problem List Intractable vomiting underlying GERD/esophagitis, resolving acute Alcohol withdrawal, delirium tremens NSTEMI, demand ischemia suspected Hypertension Hypothyroidism Chronic pain Chronic alcohol abuse hgb stable; nausea/vomiting resolved quickly advanced to clears this morning, advance as tolerated up to CLD thiamine, folic acid improving, no longer DTs no evidence of bacterial infection transition to PO dilaudid at home dosing resume home meds as appropriate zosyn to cover for abdominal/enteric pathogens, blood cultures negative so far chest pain 09/23, elevated troponin, demand ischemia from withdrawal vs ACS; cardiology consulted - hepatic steatosis restarted home gabapentin, antihypertensives LFTS elevated on 09/24 secondary to above, improved; RUQ U/S: Fatty liver Code status: Full Dispo: home, tomorrow ok for transfer to floor Time Spent Managing Pts Care (In Minutes): 35
[2021-09-25] MEDS: PANTOPRAZOLE 40MG TABLET PO SCH (15:43)
[2021-09-25 16:30] VITALS: O2SAT 98
[2021-09-25] MEDS: FOLIC ACID 1 MG TABLET PO SCH (21:11)
[2021-09-25] MEDS: HYDROMORPHONE ORAL 4 MG TAB PO SCH (21:13)
[2021-09-26] MEDS: PIPER TAZO 3.375 GM in NA CHLORIDE 0.9% 100 ML IV SCH (00:26)
[2021-09-26 05:25] VITALS: TEMP 98.5
[2021-09-26 05:45] LABS: Hematocrit 36.1 % (39.6-49.0); MCV 100.5 fL (80-100); MPV 7.5 fL (7.6-11.3); RBC Red Blood Cell Count 3.59 M/uL (4.33-5.43)
[2021-09-26 05:58] LABS: Potassium 3.3 mmol/L (3.5-5.1)
[2021-09-26] MEDS: LEVOTHYROXINE SOD 0.075 MG TAB PO SCH (06:45)
--- NOTE | 2021-09-26 07:05 | ECHO ---
HEIGHT: 5 ft 6 in WEIGHT: 149 lb 7 oz DATE OF STUDY: 09/23/[address]: Jerman Curtis MD 2-DIMENSIONAL: YES M.MODE: YES DOPPLER: YES COLOR FLOW: YES TDS: YES PORTABLE: YES DEFINITY: BUBBLE STUDY: DIAGNOSIS: CHEST PAIN CARDIAC HISTORY: CATHERIZATION: SURGERY: PROSTHETIC VALVE: PACEMAKER: YES MEASUREMENTS (cm) DIASTOLIC (NORMALS) SYSTOLIC (NORMALS) IVSd 1.0 (0.6-1.2) LA Diam 2.7 (1.9-4.0) LVEF 51% LVIDd 3.5 (3.5-5.7) LVIDs 2.6 (2.0-3.5) %FS 25% LVPWd 1.1 (0.6-1.2) Ao Diam 3.2 (2.0-3.7) 2 DIMENSIONAL ASSESSMENT: RIGHT ATRIUM: NORMAL LEFT ATRIUM: NORMAL RIGHT VENTRICLE: NORMAL LEFT VENTRICLE: NORMAL TRICUSPID VALVE: NORMAL MITRAL VALVE: NORMAL PULMONIC VALVE: NORMAL AORTIC VALVE: SCLEROSIS PERICARDIAL EFFUSION: NONE AORTIC ROOT: NORMAL LEFT VENTRICULAR WALL MOTION: NORMAL DOPPLER/COLOR FLOW: NORMAL COMMENTS: AORTIC SCLEROSIS - NO STENOSIS. NORMAL LEFT VENTRICULAR SIZE AND FUNCTION. NO WALL MOTION ABNORMALITY. NO EFFUSION TECHNOLOGIST: CLAUDIO KRAFT
[2021-09-26 08:23] VITALS: BP 183/88
[2021-09-26] MEDS: HYDROMORPHONE ORAL 4 MG TAB PO SCH (08:51)
[2021-09-26] MEDS: GABAPENTIN 300 MG CAP PO SCH (08:52)
[2021-09-26] MEDS: PANTOPRAZOLE 40MG TABLET PO SCH (08:52)
[2021-09-26] MEDS: FOLIC ACID 1 MG TABLET PO SCH (08:52)
[2021-09-26] MEDS: METOPROLOL TAR 25 MG TAB PO SCH (08:53)
[2021-09-26] MEDS: cloNIDine HCL 0.1 MG TAB PO SCH (08:53)
[2021-09-26] MEDS ORDERED: THIAMINE HCL 100 MG TABLET PO SCH (09:00)
--- NOTE | 2021-09-30 20:13 | P.DS ---
Admission Date: 09/22/21 Discharge Date: 09/26/21 Disposition: ROUTINE DISCHARGE Discharge Condition: GOOD Reason for Admission: Intractable vomiting Brief History of Present Illness: 71-year-old male with history of hypertension, hypothyroidism, chronic pain presents to the emergency department for vomiting. Patient's at bedside reports he has these episodes few times per month but they usually resolve on their own and are not as violent vomiting. He supposed to be on omeprazole daily but takes it only as needed and has not been taking it recently. He has had an EGD in the past but it was reportedly a few years ago, they are unsure of the results. He received multiple rounds of antiemetic medications in the emergency department including Reglan, Phenergan, Zofran as well as Protonix IV, he still having vomiting and nausea. He had a CT of the abdomen pelvis with IV contrast which revealed no acute intra-abdominal or pelvic findings moderately thickened distal esophagus which may reflect esophagitis. Patient with hemoglobin 16.2 hematocrit 48 his vomit has been brown, ED sent off for Gastroccult test, it was positive. ED provider initially initiated transfer to [facility] for concern for intractable vomiting, esophagitis/possible slow bleed but was declined, receiving facility stated patient can be effectively medically managed and only to transfer for gross hematemesis. Will admit here for further evaluation and management of intractable vomiting, suspected esophagitis. Discussed with patient and family at length that GI is not available at our facility and if there is a significant change in his clinical conditions he will require transfer they verbalized understanding to this, also discussed at length the need for close follow-up with GI for endoscopy at a later date for further evaluation of esophagitis. Patient does admit to drinking daily around 3 whiskey drinks per day last drink was 09/20/2021 in the evening. Hospital Course: Problem List Intractable vomiting underlying GERD/esophagitis, resolved acute Alcohol withdrawal, delirium tremens NSTEMI, demand ischemia Hypertension Hypothyroidism Chronic pain Chronic alcohol abuse Patient was treated with IV protonix drip, empiric antibiotics for possible infection, and bowel rest. His vomiting improved, however patient was noted to go into alcohol withdrawal. He was transferred to the ICU and treated with benzodiazepines and opioids for delirium tremens. His symptoms resolved and his diet was advanced, which he tolerated well. CT scan noted distal esophageal thickening, and cultures obtained were negative. No other source of infection seen. His hemoglobin was stable, indicating no ongoing/active bleed. He is deemed stable for discharge home. Protonix twice daily (to replace his prilosec), Augmentin for 5 days. Continue other chronic home medications Follow up with PCP within 1 week Follow up with GI doctor - recommend EGD as soon as you can have done to follow up on the esophageal thickening. Recommend abstaining from alcohol. Patient has gone through DT's and discussed risk of recurrence if he drinks again. Physical Exam Gen: AOx3, NAD HEENT: normal conjunctiva, sclera anicteric CV: Regular rate and rhythm, no edema Pulm: clear to auscultation bilaterally, nonlabored Abd: soft, nontender, nondistended Integumentary: no rash/lesions Neuro: moves all extremities, str 5/5 x4 ext Vital Signs/Physical Exam: Temp Pulse Resp BP Pulse Ox 98.5 F 67 18 183/88 H 97 09/26/21 08:00 09/26/21 08:53 09/26/21 08:51 09/26/21 08:53 09/26/21 08:51 Laboratory Data at Discharge: WBC 5.3 K/uL (4.3-10.9) D 09/26/21 05:17 Hgb 12.3 g/dL (13.6-17.9) L D 09/26/21 05:17 Hct 36.1 % (39.6-49.0) L D 09/26/21 05:17 Plt Count 169 K/uL (152-406) 09/26/21 05:17 Sodium 138 mmol/L (136-145) 09/26/21 05:17 Potassium 3.3 mmol/L (3.5-5.1) L 09/26/21 05:17 BUN 11 mg/dL (7-18) 09/26/21 05:17 Creatinine 1.04 mg/dL (0.55-1.3) 09/26/21 05:17 Glucose 100 mg/dL (74-106) 09/26/21 05:17 Magnesium 2.0 mg/dL (1.8-2.4) 09/25/21 04:43 Total Bilirubin 1.4 mg/dL (0.2-1.0) H 09/25/21 04:43 AST 40 U/L (15-37) H 09/25/21 04:43 ALT 61 U/L (12-78) 09/25/21 04:43 Alkaline Phosphatase 64 U/L (45-117) 09/25/21 04:43 Lipase 211 U/L (73-393) 09/21/21 20:20 Home Medications: Clonidine HCl [Catapres*] 0.2 mg PO TID 09/22/21 Ezetimibe [Zetia*] 10 mg PO DAILY 09/22/21 Gabapentin 600 mg PO TID 09/22/21 Hydromorphone [Dilaudid*] 2 tab PO BID 09/22/21 Levocetirizine Dihydrochloride [Xyzal] 5 mg PO DAILY 09/22/21 Levothyroxine [Synthroid*] 75 mcg PO [id number] 09/22/21 Metoprolol Tartrate [Lopressor*] 25 mg PO BID 09/22/21 Tizanidine [Zanaflex*] 4 mg PO BID 09/22/21 Zolpidem Tartrate [Ambien*] 10 mg PO BEDTIME 09/22/21 Amox/Clavulanate [Augmentin 875-125 Tab] 875 mg PO BID 5 Days #10 tab 09/26/21 Folic Acid 1 mg PO DAILY 30 Days #30 tablet 09/26/21 Pantoprazole [Protonix Tab*] 40 mg PO BIDAC 30 Days #60 tab 09/26/21 Thiamine HCl [Vitamin B-1*] 100 mg PO DAILY 30 Days #30 tablet 09/26/21 New Medications: Amox/Clavulanate [Augmentin 875-125 Tab] 875 mg PO BID 5 Days #10 tab Folic Acid 1 mg PO DAILY 30 Days #30 tablet Pantoprazole [Protonix Tab*] 40 mg PO BIDAC 30 Days #60 tab Thiamine HCl [Vitamin B-1*] 100 mg PO DAILY 30 Days #30 tablet Diet: Regular (soft) Activity: Ad ana Followup: YAYA JAVIER [Primary Care Provider] - Time spent managing pt's care (in minutes): 45
== END 2021-09-26 09:10 | disposition home or self-care (01) | DRG 392 ==
LOC: ER 18:32 → ERHOLD 09-22 02:10 → 2ND 09-22 02:45 → 3RD-ICU 09-22 16:45 → 2ND 09-25 16:24
PROVIDERS: ADMIT Hospitalist; ATTEND Hospitalist
DX: K21.00 Gastro-esophageal reflux disease with esophagitis, without bleeding (principal); F10.231 Alcohol dependence with withdrawal delirium; I10 Essential (primary) hypertension; E03.9 Hypothyroidism, unspecified; G89.29 Other chronic pain; K76.0 Fatty (change of) liver, not elsewhere classified; R77.8 Other specified abnormalities of plasma proteins; Z78.1 Physical restraint status; Z95.0 Presence of cardiac pacemaker; Z20.822 Contact with and (suspected) exposure to COVID-19
CPT/HCPCS: 36415; 70450; 71045; 71250; 74177; 76705; 80048; 80053; 80076; 81003; 81015; 82140; 82271; 83605; 83690; 83735; 83986; 84484; 85014; 85018; 85025; 85027; 87040; 87804; 93005; 93306; 96374; 96375; 99285; C9113; J0360; J1170; J1650; J2175; J2270; J2405; J2543; J2550; J3411; J3475; J3480; J7030; J7050; J7799; Q9967; U0003

== ENCOUNTER 2022-04-02 21:57 | Observation (INO) | payer OTHER ==
--- NOTE | 2022-04-02 22:53 | RAD REPORT ---
EXAM DESCRIPTION: CT - CTHCSPWOC - 04/02/2022 10:41 pm CLINICAL HISTORY: Trauma, head and neck injury. syncope, fall COMPARISON: Head CT dated 09/22/2021 TECHNIQUE: Axial 5 mm thick images of the head were obtained. Axial 2 mm thick images of the cervical spine were obtained with sagittal and coronal reconstruction images generated and reviewed. All CT scans are performed using dose optimization technique as appropriate and may include automated exposure control or mA/KV adjustment according to patient size. FINDINGS: CT HEAD WITHOUT CONTRAST: No acute hemorrhage, hydrocephalus or extra-axial collection is identified.No areas of brain edema or midline shift. Moderate chronic small vessel ischemic changes. Empty sella, typically a normal varia nt. The paranasal sinuses and mastoids are clear.The calvarium is intact. CT CERVICAL SPINE WITHOUT CONTRAST: No fracture or subluxation.No prevertebral soft tissues swelling is identified. Status post C5 throug h C7 ACDF. No hardware complications. IMPRESSION: No acute intracranial or cervical spine findings.
[2022-04-02 23:16] LABS: Absolute Lymphocytes (CBC) 1.9 K/uL (0.7-4.9); Hematocrit 41.6 % (39.6-49.0); Lymphocytes % 18.6 % (15.3-44.8); MCV 99.7 fL (80-100); RBC Red Blood Cell Count 4.17 M/uL (4.33-5.43)
[2022-04-02 23:21] LABS: Protime INR 0.95
[2022-04-02 23:29] LABS: Urine Blood Trace-intact (Negative); Urine Glucose 2+ (Negative); Urine Protein 1+ (Negative); Urine pH 5.5 (5.0-7.0)
[2022-04-02 23:32] LABS: ALT/SGPT 23 U/L (16-61); Albumin 3.6 g/dL (3.4-5.0); Alkaline Phosphatase 90 U/L (45-117); BUN Blood Urea Nitrogen 18 mg/dL (7-18); Bicarbonate 24 mmol/L (21-32); Bilirubin Total 0.5 mg/dL (0.2-1.0); Glomerular Filtration Rate 38 ml/min (=/>90); Glucose Level 211 mg/dL (74-106); Protein, Total 7.5 g/dL (6.4-8.2); Sodium Level 135 mmol/L (136-145); Troponin High Sensitivity 5.5 pg/mL (<58.9)
[2022-04-02 23:33] LABS: AST/SGOT 31 U/L (15-37); Bilirubin Direct < 0.1 mg/dL (0-0.2); Magnesium 1.9 mg/dL (1.6-2.4); Potassium 3.7 mmol/L (3.5-5.1)
--- NOTE | 2022-04-03 00:08 | EDPHYS ---
Physician Documentation [facility] Name: Edison Sow Age: 71 yrs Sex: Male : 1950 Arrival Date: 04/02/2022 Time: 22:05 Bed 14 Private MD: ED Physician Evans Keller HPI: 04/03 00:14 This 71 yrs old Male presents to ER via EMS with complaints of Syncope. ms3 00:14 71-year-old male with past medical history of hypertension, hypothyroidism, alcohol ms3 abuse, GERD, chronic pain presents via [facility] for syncope. EMS notes patient had syncopal episode this morning and family did not notify EMS at that time. Patient did work outside and did drink alcohol. Patient was standing in his kitchen and had a syncopal episode. On EMS arrival patient was found to be hypotensive and diaphoretic. Patient endorses neck pain. Patient rates his pain a 7/10 describes pain as aching. Patient denies alleviating or inciting factors.. Historical: - Allergies: 04/02 22:41 Gypbjvm-Zgm-Xjn Reductase Inhibitors; ke1 - PMHx: 04/03 00:17 Nerve pain in the legs; Hypertensive disorder; ke1 00:18 spine deterioration; ke1 - PSHx: 00:18 atrial pacemaker; Rods in the back; Brace in neck; Pain pump; ke1 - Immunization history:: Adult Immunizations unknown. - Immunization history: Last tetanus immunization: unknown. - Social history:: Smoking status: Patient denies any tobacco usage or history of. ROS: 00:14 Constitutional: Negative for fever, and chills. Neck: Negative for injury, pain, and ms3 swelling, Cardiovascular: Negative for chest pain, and palpitations. Respiratory: Negative for shortness of breath, cough, wheezing, and pleuritic chest pain, Abdomen/GI: Negative for abdominal pain, nausea, vomiting, diarrhea, and constipation, MS/Extremity: Negative for injury and deformity, Skin: Negative for injury, rash, and discoloration. 00:14 Neuro: Positive for syncope. 00:14 All other systems are negative. Exam: 04/02 23:18 ECG was reviewed by the Attending Physician. ms3 04/03 00:14 Constitutional: This is a well developed, well nourished patient who is awake, alert, ms3 and in no acute distress. Neck: Trachea midline, no cervical lymphadenopathy. Supple, full range of motion without nuchal rigidity, or vertebral point tenderness. No Meningismus. Chest/axilla: Normal chest wall appearance and motion. Nontender with no deformity. Cardiovascular: Regular rate and rhythm with a normal S1 and S2. No gallops, murmurs, or rubs. Normal PMI, no JVD. No pulse deficits. Respiratory: Lungs have equal breath sounds bilaterally, clear to auscultation and percussion. No rales, rhonchi or wheezes noted. No increased work of breathing, no retractions or nasal flaring. Abdomen/GI: Soft, non-tender, with normal bowel sounds. No distension or tympany. No guarding or rebound. No evidence of tenderness throughout. Skin: Warm, dry with normal turgor. Normal color with no rashes, no lesions, and no evidence of cellulitis. Neck: External neck: no acute changes, C-spine: C-collar placed ACCOUNTING MANAGER ASSISTANT CONTROLLER, Trachea: is midline with no obvious abnormalities. Vital Signs: 04/02 22:00 BP 118 / 71; Pulse 60; Resp 17; Temp 97.4; Pulse Ox 100% on R/A; Height 5 ft. 6 in. ke1 (167.64 cm); Pain 7/10; 23:00 BP 127 / 75; Pulse 62; Resp 19; Temp 97.6; Pulse Ox 100% ; Pain 0/10; ke1 04/03 00:20 Weight 68.95 kg; ke1 00:35 BP 145 / 72; Pulse 60; Resp 17; Temp 97.7; Pulse Ox 100% ; Pain 0/10; ke1 04/02 22:00 Body Mass Index 24.53 (68.95 kg, 167.64 cm) ke1 Yoanna Coma Score: 04/02 22:00 Eye Response: spontaneous(4). Verbal Response: oriented(5). Motor Response: obeys ke1 commands(6). Total: 15. Trauma Score (Adult): 22:00 Eye Response: spontaneous(1); Verbal Response: oriented(1); Motor Response: obeys ke1 commands(2); Systolic BP: > 89 mm Hg(4); Respiratory Rate: 10 to 29 per min(4); Yoanna Score: 15; Trauma Score: 12 MDM: 22:12 Patient medically screened. ms3 04/03 00:14 Differential Diagnosis: cardiac arrhythmia, idiopathic syncope, seizure, vasovagal ms3 episode. Data reviewed: vital signs, nurses notes, lab test result(s), EKG, radiologic studies, and as a result, I will admit patient. Consideration of Admission/Observation Patient was admitted/placed on observation. Management of patient was discussed with the following: Hospitalist: Discussed case with RENETTA Kruger, and she accepts patient on behalf of Dr Samson.. I considered the following discharge prescriptions or medication management in the emergency department Medications were administered in the Emergency Department. See MAR. Independent interpretation of the following test(s) in the Emergency Department EKG: See my EKG interpretation above cardiac monitor: rate is 60 beats/min, Rhythm is paced rhythm with no ectopy, Interpretation: normal rate, paced. Historians other than the Patient: EMS: [employer]. Counseling: I had a detailed discussion with the patient and/or guardian regarding: the historical points, exam findings, and any diagnostic results supporting the discharge/admit diagnosis, lab results, radiology results, the need for further work-up and treatment in the hospital. ED course: Discussed necessity of observation with patient, his , and his daughter. Patient has had 2 syncopal episodes without symptoms prior to syncope.. 04/02 22:13 Order name: Basic Metabolic Panel; Complete Time: 23:45 ms3 04/02 22:13 Order name: CBC with Diff; Complete Time: 23:45 ms3 04/02 22:13 Order name: Hepatic Function; Complete Time: 23:45 ms3 04/02 22:13 Order name: Magnesium; Complete Time: 23:45 ms3 04/02 22:13 Order name: Protime (+inr); Complete Time: 23:45 ms3 04/02 22:13 Order name: Ptt, Activated; Complete Time: 23:45 ms3 04/02 22:13 Order name: Troponin High Sensitivity; Complete Time: 23:45 ms3 04/02 22:13 Order name: CT Head C Spine; Complete Time: 23:14 ms3 04/02 22:13 Order name: Chest Single View XRAY ms3 04/02 22:13 Order name: EKG; Complete Time: 22:13 ms3 04/02 23:29 Order name: Urine Dipstick-Ancillary; Complete Time: 23:45 EDMS 04/02 23:47 Order name: SARS RAPID; Complete Time: 00:36 ke1 04/03 00:01 Order name: Alcohol Serum/Plasma; Complete Time: 00:36 EDMS 04/02 22:13 Order name: Cardiac monitoring; Complete Time: 23:22 ms3 04/02 22:13 Order name: EKG - Nurse/Tech; Complete Time: 23:22 ms3 04/02 22:13 Order name: IV Saline Lock; Complete Time: 23:22 ms3 04/02 22:13 Order name: Labs collected and sent; Complete Time: 23:22 ms3 04/02 22:13 Order name: NPO; Complete Time: 23:28 ms3 04/02 22:13 Order name: O2 Per Protocol; Complete Time: 23:22 ms3 04/02 22:13 Order name: O2 Sat Monitoring; Complete Time: 23:22 ms3 04/02 22:13 Order name: Urine Dipstick-Ancillary (obtain specimen); Complete Time: 23:28 ms3 EC/29 23:18 Rate is 60 beats/min. Rhythm is regular. QRS [place] is Normal. QRS interval is normal. ms3 Clinical impression: Paced. Interpreted by me. Reviewed by me. Administered Medications: No medications were administered Disposition Summary: 04/03/22 00:08 Hospitalization Ordered Hospitalization Status: Observation ms3 Provider: Mohan Samson ms3 Location: Telemetry/MedSurg (observation) ms3 Condition: Stable ms3 Problem: new ms3 Symptoms: are unchanged ms3 Bed/Room Type: Standard ms3 Room Assignment: 401(04/03/22 00:35) mw Diagnosis - Syncope ms3 - Fall on same level, unspecified ms3 - Alcohol use, unspecified ms3 Forms: - Medication Reconciliation Form ms3 - SBAR form ms3 Signatures: Dispatcher [employer] EDMS Diane Nova RN ADAL mw Evans Keller, DO ms3 Vikram Zurita RN RN ke1 Santa Steele, PAArmidaC PAPat sb4 Corrections: (The following items were deleted from the chart) 23:07 22:17 Head Brain Wo Cont+CT.RAD.BRZ ordered. EDMS EDMS 04/03 00:35 00:08 ms3 mw
--- NOTE | 2022-04-03 00:08 | ER ---
Nurse's Notes [facility] Name: Edison Sow Age: 71 yrs Sex: Male : 1950 Arrival Date: 04/02/2022 Time: 22:05 Bed 14 Private MD: Diagnosis: Syncope;Fall on same level, unspecified;Alcohol use, unspecified Presentation: 04/02 22:00 Chief complaint: EMS states: Unwitnessed fall in the kitchen, patient passed out this ke1 Am but did not seek medical attention and fell earlier, does not know if he hit his head, does not recall event. Ebola Screen: No symptoms or risks identified at this time. Initial Sepsis Screen: Does the patient meet any 2 criteria? No. Patient's initial sepsis screen is negative. Does the patient have a suspected source of infection? No. Patient's initial sepsis screen is negative. Risk Assessment: Do you want to hurt yourself or someone else? Patient reports no desire to harm self or others. Onset of symptoms was April 02, 2022 at 21:25. 22:00 Method Of Arrival: EMS: [facility] ke1 22:00 Acuity: UVALDO 2 ke1 22:43 Care prior to arrival: 350 ml ns. Mechanism of Injury: Fall unwitnessed. Trauma event ke1 details: Injury occurred in the [facility]. 04/03 00:47 Coronavirus screen: Vaccine status: Patient reports receiving the 2nd dose of the covid ke1 vaccine. Triage Assessment: 04/02 22:42 General: Appears in no apparent distress. Behavior is appropriate for age, Smells of ke1 alcohol. Pain: Complains of pain in right shoulder Pain currently is 7 out of 10 on a pain scale. at worst was 7 out of 10 on a pain scale. level that patient reports is acceptable is 4 out of 10 on a pain scale. Trauma Activation: Physician: ED Physician; Name: sinan; Notified At: 22:00; Arrived At: Physician: General Surgeon; Name: ; Notified At: 22:00; Arrived At: Physician: Radiology; Name: ; Notified At: 22:00; Arrived At: Physician: Respiratory; Name: ; Notified At: 22:00; Arrived At: Physician: [place]; Name: ; Notified At: 22:00; Arrived At: Historical: - Allergies: 22:41 Zwgusvp-Scq-Wxd Reductase Inhibitors; ke1 - PMHx: 04/03 00:17 Nerve pain in the legs; Hypertensive disorder; ke1 00:18 spine deterioration; ke1 - PSHx: 00:18 atrial pacemaker; Rods in the back; Brace in neck; Pain pump; ke1 - Immunization history:: Adult Immunizations unknown. - Immunization history: Last tetanus immunization: unknown. - Social history:: Smoking status: Patient denies any tobacco usage or history of. Screenin/29 22:40 [facility] ED Fall Risk Assessment (Adult) History of falling in the last 3 months, ke1 including since admission Yes- fall prone (multiple falls) (3 pts) Confusion or Disorientation Yes (5 pts) Intoxicated or Sedated Yes (3 pts) Impaired Gait Yes (1 pt) Mobility Assist Device Used No (0 pt) Altered Elimination No (0 pt) Score/Fall Risk Level 3 or more points = High Risk Maintained a safe environment, Educated pt \T\ family on fall prevention, incl call for assistance when getting out of bed, Assessed \T\ reinforced patient's understanding of fall precautions, Provided non-skid footwear, Hourly rounding (assess needs \T\ fall precautionary measures) done. Abuse screen: Denies threats or abuse. Nutritional screening: No deficits noted. Tuberculosis screening: No symptoms or risk factors identified. Primary Survey: 22:39 NO uncontrolled hemorrhage observed. A: The client is alert. Airway: patent. ke1 Breathing/Chest: Respiratory effort: spontaneous, unlabored, Breath sounds: clear, Respiratory pattern: regular. Circulation: Hemorrhage: No external hemorrhage noted. Pulses: palpable left radial artery. Skin color: pink, Skin temperature: warm, Cardiac rhythm:. Disability Pupils are equal, round, reactive to light and accommodation. Exposure/Environment: All clothing and personal items were removed. Forensic evidence collection is not deemed to be indicated at this time. Items placed in patient belonging bag. There is no evidence of uncontrolled external bleeding. No obvious injuries are noted at this time. 23:28 Reassessment Alertness and Airway: Airway Patent Breathing: Respiratory effort ke1 Spontaneous Breath sounds Clear Circulation: Heart tones Present. Secondary Survey: 22:39 HEENT: Head No injury/deformity Face No injury/deformity Eyes: No injury or deformity ke1 noted. Ears: clear Nose: clear Throat: No injury or deformity noted. Gastrointestinal: No deficits noted. : No deficits noted. Musculoskeletal: Range of motion: limited in right shoulder. Assessment: 23:29 Cardiovascular: Rhythm is Atrial pacemaker. GI: RLQ pain pump. ke1 23:44 Reassessment: Patient appears in no apparent distress at this time. Patient is alert, ke1 oriented x 3, equal unlabored respirations, skin warm/dry/pink. Vital Signs: 22:00 BP 118 / 71; Pulse 60; Resp 17; Temp 97.4; Pulse Ox 100% on R/A; Height 5 ft. 6 in. ke1 (167.64 cm); Pain 7/10; 23:00 BP 127 / 75; Pulse 62; Resp 19; Temp 97.6; Pulse Ox 100% ; Pain 0/10; ke1 04/03 00:20 Weight 68.95 kg; ke1 00:35 BP 145 / 72; Pulse 60; Resp 17; Temp 97.7; Pulse Ox 100% ; Pain 0/10; ke1 04/02 22:00 Body Mass Index 24.53 (68.95 kg, 167.64 cm) ke1 [place] Coma Score: 04/02 22:00 Eye Response: spontaneous(4). Verbal Response: oriented(5). Motor Response: obeys ke1 commands(6). Total: 15. Trauma Score (Adult): 22:00 Eye Response: spontaneous(1); Verbal Response: oriented(1); Motor Response: obeys ke1 commands(2); Systolic BP: > 89 mm Hg(4); Respiratory Rate: 10 to 29 per min(4); Yoanna Score: 15; Trauma Score: 12 ED Course: 22:00 Maintain EMS IV. Dressing intact. Site clean \T\ dry. Gauge \T\ site: 20 G LAC. ke 1 22:05 Patient arrived in ED. ja2 22:06 Evans Keller DO is Attending Physician. ms3 22:34 Vikram Zurita, ADAL is Primary Nurse. ke1 22:38 Triage completed. ke1 22:43 CT Head C Spine In Process Unspecified. EDMS 22:43 Arm band placed on. ke1 22:44 Bed in low position. Call light in reach. ke1 22:44 Patient maintains SpO2 saturation greater than 95% on room air. Thermoregulation: warm ke1 blanket given to patient. 22:54 Chest Single View XRAY In Process Unspecified. EDMS 04/03 00:06 Mohan Samson is Hospitalizing Provider. ms3 01:18 No provider procedures requiring assistance completed. ke1 01:18 Patient admitted, IV remains in place. ke1 Administered Medications: No medications were administered Medication: 00:46 VIS not applicable for this client. ke1 Outcome: 00:08 Decision to Hospitalize by Provider. ms3 01:17 Admitted to Med/surg accompanied by tech. ke1 01:17 Condition: good 01:17 Instructed on the need for admit. 01:18 Patient left the ED. ke1 Signatures: Dispatcher [employer] EDMS Evans Keller DO DO ms3 Joel Evelynmirna duke2 Vikram Zurita RN RN ke1 Corrections: (The following items were deleted from the chart) 00:24 04/02 22:00 BP 118 / 71; Pulse 60bpm; Resp 17bpm; Pulse Ox 100% RA; Temp 97.4F; Pain ke1 7/10; ke1 04/03 00:41 00:35 BP 145 / 72; Pulse 60bpm; Resp 17bpm; Pulse Ox 100%; Pain 0/10; ke1 ke1
[2022-04-03 00:19] LABS: SARS-CoV-2 Antigen Rapid Res Negative (Negative)
[2022-04-03] MEDS ORDERED: ACETAMINOPHEN 500 MG TAB PO PRN (01:21)
[2022-04-03 01:23] VITALS: O2SAT 100
[2022-04-03 01:25] VITALS: BMI 25.2
--- NOTE | 2022-04-03 01:32 | P.HP ---
Certification for Inpatient Patient admitted to: Observation With expected LOS: <2 Midnights Patient will require the following post-hospital care: None Practitioner: I am a practitioner with admitting privileges, knowledge of patient current condition, hospital course, and medical plan of care. Services: Services provided to patient in accordance with Admission requirements found in Title 42 Section 412.3 of the Code of Federal Regulations Patient History Date of Service: 04/03/22 Reason for admission: Syncope History of Present Illness: Patient is a 71-year-old male with history of hypertension, hypothyroidism, alcohol abuse, GERD, and chronic pain who presented to the emergency department after 2 syncopal episodes. reports that patient had been working outside, came inside and ate lunch, then noticed he was looking "kaye" and fell over. She states he was not responding and his blood pressure was too low for their home machine to read it. Additionally, she states that he had another syncopal episode last night when getting out of bed. Labs today are significant for creatinine 1.88, glucose 211, etoh 118. CT heads/cspine negative. BP has been normotensive in the ED. Patient is alert and oriented x 4. ED provider wishes to admit patient for observation. Allergies Jxbuibs-[id number] Reductase Inhibitor Allergy (Verified 09/22/21 02:23) Nausea/Vomiting Home medications list reviewed: Yes Home Medications: Clonidine HCl [Catapres*] 0.2 mg PO TID 09/22/21 Ezetimibe [Zetia*] 10 mg PO DAILY 09/22/21 Gabapentin 600 mg PO TID 09/22/21 Hydromorphone [Dilaudid*] 2 tab PO BID 09/22/21 Levocetirizine Dihydrochloride [Xyzal] 5 mg PO DAILY 09/22/21 Levothyroxine [Synthroid*] 75 mcg PO [id number] 09/22/21 Metoprolol Tartrate [Lopressor*] 25 mg PO BID 09/22/21 Tizanidine [Zanaflex*] 4 mg PO BID 09/22/21 Zolpidem Tartrate [Ambien*] 10 mg PO BEDTIME 09/22/21 Amox/Clavulanate [Augmentin 875-125 Tab] 875 mg PO BID 5 Days #10 tab 09/26/21 Folic Acid 1 mg PO DAILY 30 Days #30 tablet 09/26/21 Pantoprazole [Protonix Tab*] 40 mg PO BIDAC 30 Days #60 tab 09/26/21 Thiamine HCl [Vitamin B-1*] 100 mg PO DAILY 30 Days #30 tablet 09/26/21 - Past Medical/Surgical History Diabetic: No -: Hypertension -: Hypothyroidism -: Alcohol abuse -: GERD -: chronic pain -: Pain pump -: Pacemaker -: multiple back surgeries Psychosocial/ Personal History: Patient lives at home with his is retired - Family History Family History: Reviewed- Non-Contributory - Social History Smoking Status: Never smoker Alcohol use: Yes CD- Drugs: No Caffeine use: Yes Place of Residence: Home Review of Systems Unremarkable Physical Examination - Vital Signs Temperature: 97.7 F Blood Pressure: 145/72 Pulse: 60 Respirations: 17 Pulse Ox (%): 100 - Physical Exam General: Alert, In no apparent distress HEENT: Atraumatic, Other (dry mucuous membranes), EOMI Neck: Supple, 2+ carotid pulse no bruit Respiratory: Clear to auscultation bilaterally, Normal air movement Cardiovascular: Regular rate/rhythm, Normal S1 S2 Gastrointestinal: Normal bowel sounds, No tenderness Musculoskeletal: No tenderness Integumentary: No rashes Neurological: Normal speech, Normal affect - Studies Laboratory Data (last 24 hrs) 04/02/22 23:00: PT 10.5, INR 0.95, APTT 25.8 04/02/22 23:00: WBC 10.30, Hgb 14.2, Hct 41.6, Plt Count 184 04/02/22 23:00: Sodium 135 L, Potassium 3.7, BUN 18, Creatinine 1.88 H, Glucose 211 H, Magnesium 1.9, Total Bilirubin 0.5, AST 31, ALT 23, Alkaline Phosphatase 90 Assessment and Plan - Problems (Diagnosis) (1) Syncope Current Visit: Yes Status: Acute Qualifiers: Syncope type: unspecified Qualified Code(s): R55 - Syncope and collapse (2) Hypertension Current Visit: Yes Status: Chronic Qualifiers: Hypertension type: primary hypertension Qualified Code(s): I10 - Essential (primary) hypertension (3) Alcohol abuse Current Visit: Yes Status: Chronic (4) GERD (gastroesophageal reflux disease) Current Visit: Yes Status: Chronic Qualifiers: Esophagitis presence: without esophagitis Qualified Code(s): K21.9 - Gastro-esophageal reflux disease without esophagitis (5) Hypothyroidism Current Visit: Yes Status: Chronic Qualifiers: Hypothyroidism type: unspecified Qualified Code(s): E03.9 - Hypothyroidism, unspecified - Plan Patient is admitted for observation for syncopal episodes. Echo 6 months ago without abnormalities. Obtain carotid ultrasound. Cardiology consult. Monitor on telemetry. Obtain orthostatic vital signs. Banana bag for IV hydration. Alcohol withdrawal assessments. Monitor and replete electrolytes per protocol. Reconcile and continue home medications. Full code. Discharge Plan: Home Plan to discharge in: 24 Hours - Advance Directives Does patient have a Living Will: No Does patient have a Durable POA for Healthcare: No - Code Status/Comfort Care Code Status Assessed: Yes Code Status: Full Code Physician Review: Patient Assessed, Agree with Above Assessment and Plan Critical Care: No
[2022-04-03 04:04] LABS: Absolute Lymphocytes (CBC) 2.5 K/uL (0.7-4.9); Lymphocytes % 29.4 % (15.3-44.8); MCV 99.2 fL (80-100); MPV 7.9 fL (7.6-11.3); RBC Red Blood Cell Count 4.14 M/uL (4.33-5.43)
[2022-04-03 04:37] LABS: Magnesium 1.9 mg/dL (1.6-2.4); Thyroid Stimulating Hormone 2.44 uIU/mL (0.358-3.740)
--- NOTE | 2022-04-03 08:46 | RAD REPORT ---
EXAM DESCRIPTION: - CP - 04/03/2022 5:50 am CLINICAL HISTORY: syncope Headache, drowsiness COMPARISON: Head C Spine Mpr Wo Con dated 04/02/2022 TECHNIQUE: Real-time sonographic evaluation of both carotid systems was performed. Doppler interroga tion was performed with waveform tracing bilaterally. FINDINGS: Normal high resistance waveforms are noted in both external carotid arteries. The common c arotid arteries and internal carotid arteries show normal low resistance waveforms. Mild to moderate mixed plaque is seen distal common carotid arteries and proximal internal carotid ar teries bilaterally. Peak systolic and end diastolic velocity values and the ICA/CCA ratios are in the non-hemodynamically significant range. Antegrade flow seen in both vertebral arteries. IMPRESSION: Ckov-ti-ogbavplo bilateral mixed plaquing in both carotid systems as detailed. No evidence of a hemodynamically significant stenosis.
[2022-04-03] MEDS ORDERED: FOLIC ACID 1 MG, MULTIVITAMINS INJ 10 ML, THIAMINE HCL 100 MG in NA CHLORIDE 0.9% 1,000 ML IV SCH (09:00)
--- NOTE | 2022-04-03 09:33 | RAD REPORT ---
EXAM DESCRIPTION: Chest Single View CLINICAL HISTORY: 71 years Male syncope, fall COMPARISON: None TECHNIQUE: AP view of the chest was obtained. FINDINGS: Cardiac silhouette is mildly enlarged. Central vessels are mildly. Pacemaker leads are dean ntified. Electrodes superolateral left hemithorax. Eventration right hemidiaphragm. Minimal airspace opacities lower lungs bilaterally likely fatty betancur ge. No effusions bilaterally. No pneumothorax. Postsurgical changes lower cervical spine. IMPRESSION: Enlarged heart with mild central congestion. No infiltrate seen. Electronically signed by: Elisabeth Rivera MD 04/02/2022 11:29 PM SONG WRITER Due to temporary technical issues with the PACS/Fluency reporting system, reports are being signed by the in house radiologists without review as a courtesy to insure prompt reporting. The interpreting radiologist is fully responsible for the content of the report.
[2022-04-03] MEDS ORDERED: HOME MED 1 EA UNK (Levocetirizine Dihydrochloride [Xyzal] 5 MG Tablet) PO PRN (09:35)
[2022-04-03] MEDS ORDERED: FLUMAZENIL 0.1 MG/ML (5 mL VIAL) IV PRN (09:36)
[2022-04-03] MEDS ORDERED: LORazepam 2 MG/ML VIAL IV PRN (09:36)
[2022-04-03] MEDS ORDERED: FOLIC ACID 1 MG TABLET PO SCH (09:36)
[2022-04-03] MEDS ORDERED: METOPROLOL TAR 25 MG TAB PO SCH (09:36)
[2022-04-03] MEDS ORDERED: HYDRALAZINE HCL 20 MG/ML VIAL IV PRN (09:39)
[2022-04-03] MEDS: LORazepam 2 MG/ML VIAL IV SCH ×3 (09:47→16:56)
[2022-04-03] MEDS: cloNIDine HCL 0.1 MG TAB PO SCH ×2 (09:47→13:50)
[2022-04-03] MEDS ORDERED: GABAPENTIN 300 MG CAP PO SCH (14:00)
--- NOTE | 2022-04-03 14:07 | P.PN ---
Date of Service: 04/03/22 Patient seen and examined. He is awake and alert. His face is flushed. He is also experiencing tremors in his hands. Blood pressure is severely elevated. Orthostatic vitals negative. reports patient was unresponsive for more than 10-minutes. also stated his BP was unrecordable at that time he was unresponsive at home. Patient's BP has been severely elevated with systolic up to 235. I suspect his BP was unrecordable because it was very high. Patient is alcoholic and I suspect alcohol-related seizures. We will place him on [facility] protocol. Obtain echocardiogram. Neurology consulted. 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 Will start Keppra 250 mg bid after discussion with Dr. Tafoya. Keppra may not be effective if pt continues drinking. Restarted home antihypertensives and added hydralazine. Pacemaker interrogated and no arrhythmia or bradycardia per preliminary report.
[2022-04-03 16:34] VITALS: BP 119/57; TEMP 97.4
[2022-04-03] MEDS ORDERED: levETIRAcetam 500 MG TAB PO SCH (17:00)
--- NOTE | 2022-04-03 17:23 | P.DS ---
Admission Date: 04/03/22 Discharge Date: 04/03/22 Disposition: ROUTINE DISCHARGE Discharge Condition: FAIR Reason for Admission: Syncope - Problems (1) Malignant hypertension Current Visit: Yes Status: Acute (2) Alcohol related seizure Current Visit: Yes Status: Acute (3) Alcohol abuse Current Visit: Yes Status: Chronic (4) GERD (gastroesophageal reflux disease) Current Visit: Yes Status: Chronic Qualifiers: Esophagitis presence: without esophagitis Qualified Code(s): K21.9 - Gastro-esophageal reflux disease without esophagitis Brief History of Present Illness: Patient is a 71-year-old male with history of hypertension, hypothyroidism, alcohol abuse, GERD, and chronic pain who presented to the emergency because patient passed out twice. stated last episode occurred after dinner, patient was seen foaming on the mouth, his blood pressure was unrecordable. Patient was initially normotensive, then became hypertensive in the ED. Labs were significant for creatinine 1.88, glucose 211, etoh 118. CT heads/cspine negative. Alert and oriented x 4. Patient placed under observation for further management. Hospital Course: Patient admitted to the medical floor. He remained awake and alert. Orthostatic vitals were negative but patient systolic blood pressure was severely elevated up to 235. I suspect his BP was unrecordable at home because it was very high. His home antihypertensives were restarted. Systolic blood pressure improved to 140. reports patient was unresponsive for more than 10-minutes. Patient seen by neurology Dr. Tafoya and diagnosed with alcohol related seizures. states patient has had multiple episodes in the past. Patient placed on CIWA and started on Keppra to 50 mg twice daily. He is also on gabapentin 600 mg 3 times daily which will act as an adjunct for seizures. Bilateral carotid Doppler showed no hemodynamically significant stenosis. His pacemaker was interrogated and no arrhythmia or bradycardia per preliminary report. Upon further questioning, patient is not motivated to quit drinking alcohol. Family were eager for discharge and does not want him to stay in the hospital to go through alcohol withdrawal. They stated patient went through an episode of alcohol withdrawal and it was traumatic to him. Patient discharged with a prescription for Keppra. I advised fall precautions. I also advised alcohol cessation and informed them to return patient to the ED should he have another episode of seizures or loss of consciousness. They were made aware the antiseizure medication will not be effective against seizures if he continues to drink alcohol. Vital Signs/Physical Exam: Temp Pulse Resp BP Pulse Ox 97.4 F 74 16 119/57 L 93 04/03/22 16:00 04/03/22 16:00 04/03/22 16:00 04/03/22 16:00 04/03/22 16:00 General: Alert, In no apparent distress, Oriented x3 HEENT: Mucous membr. moist/pink Respiratory: Clear to auscultation bilaterally, Normal air movement Cardiovascular: No edema, Regular rate/rhythm, Normal S1 S2 Gastrointestinal: Normal bowel sounds, Soft and benign, Non-distended, No tenderness Musculoskeletal: No swelling Integumentary: No cyanosis Neurological: Normal strength at 5/5 x4 extr Laboratory Data at Discharge: WBC 8.60 K/uL (4.3-10.9) 04/03/22 03:06 Hgb 14.0 g/dL (13.6-17.9) 04/03/22 03:06 Hct 41.0 % (39.6-49.0) 04/03/22 03:06 Plt Count 184 K/uL (152-406) 04/03/22 03:06 PT 10.5 SECONDS (9.5-12.5) 04/02/22 23:00 INR 0.95 04/02/22 23:00 APTT 25.8 SECONDS (24.3-36.9) 04/02/22 23:00 Sodium 137 mmol/L (136-145) 04/03/22 03:06 Potassium 4.0 mmol/L (3.5-5.1) 04/03/22 03:06 BUN 17 mg/dL (7-18) 04/03/22 03:06 Creatinine 1.65 mg/dL (0.70-1.30) H 04/03/22 03:06 Glucose 83 mg/dL (74-106) 04/03/22 03:06 Phosphorus 3.0 mg/dL (2.5-4.9) 04/03/22 03:06 Magnesium 1.9 mg/dL (1.6-2.4) 04/03/22 03:06 Total Bilirubin 0.5 mg/dL (0.2-1.0) 04/02/22 23:00 AST 31 U/L (15-37) 04/02/22 23:00 ALT 23 U/L (16-61) 04/02/22 23:00 Alkaline Phosphatase 90 U/L (45-117) 04/02/22 23:00 Triglycerides 265 mg/dL (<150) H 04/03/22 03:06 Cholesterol 203 mg/dL (<200) H 04/03/22 03:06 HDL Cholesterol 52 mg/dL (40-60) 04/03/22 03:06 Cholesterol/HDL Ratio 3.90 04/03/22 03:06 Home Medications: Clonidine HCl [Catapres*] 0.2 mg PO TID 09/22/21 Ezetimibe [Zetia*] 10 mg PO DAILY 09/22/21 Hydromorphone [Dilaudid*] 2 tab PO BID 09/22/21 Levocetirizine Dihydrochloride [Xyzal] 5 mg PO DAILY PRN 09/22/21 Levothyroxine [Synthroid*] 75 mcg PO [id number] 09/22/21 Metoprolol Tartrate [Lopressor*] 25 mg PO BID 09/22/21 Tizanidine [Zanaflex*] 4 mg PO BID 09/22/21 Zolpidem Tartrate [Ambien*] 10 mg PO BEDTIME 09/22/21 Folic Acid 1 mg PO DAILY 30 Days #30 tablet 04/03/22 Gabapentin 600 mg PO TID #90 tab 04/03/22 Pantoprazole [Protonix Tab*] 40 mg PO BID #60 tab 04/03/22 Thiamine HCl [Vitamin B-1*] 100 mg PO DAILY 30 Days #30 tablet 04/03/22 levETIRAcetam [Keppra*] 250 mg PO BID #60 tab 04/03/22 New Medications: Folic Acid 1 mg PO DAILY 30 Days #30 tablet Gabapentin 600 mg PO TID #90 tab levETIRAcetam [Keppra*] 250 mg PO BID #60 tab Pantoprazole [Protonix Tab*] 40 mg PO BID #60 tab Thiamine HCl [Vitamin B-1*] 100 mg PO DAILY 30 Days #30 tablet Diet: AHA Activity: Fall precautions Followup: Steve Tafoya MD [ASSOCIATE-ACTIVE - CAN ADMIT] - YAYA JAVIER [Primary Care Provider] - 1 Week Cheo Red MD [ACTIVE - CAN ADMIT] -
--- NOTE | 2022-04-03 19:52 | CON ---
Date of Consultation: 04/03/2022 Reason For Consultation: Syncope. History Of Present Illness: This 71-year-old male with history of hypertension, hypothyroidism, alco holic, acid reflux presented to the emergency room with 2 syncopal episodes. As per , the patien t was working outside and he came in for lunch and he was very pale, was not responding. His blood p ressure was too low. Denies having any chest pain or shortness of breath and he has a pacemaker in [facility]. Past Medical History: As outlined above in the HPI. Medications: Refer to reconciliation sheet for detailed list. Allergies: STATINS. Family History: No premature coronary artery disease or cancer. Social History: Does not smoke or drink. Does not use any drugs. Review of Systems: All systems reviewed and they were negative except for mentioned in HPI. Physical Examination: Vital Signs: Temperature is 97.4, pulse 74, breathing at 16, blood pressure is 119/57, and saturatin g 93% on room air. General: A pleasant elderly male, in no apparent distress. Head And Neck: Pupils are equal and reactive to light. Intact eye movements. No JVD. No cervical lymphadenopathy. Neck is supple. Thyroid is not enlarged. Lungs: Clear to auscultation bilaterally. No rhonchi, wheezing, or crackles. No accessory muscle u se. Heart: Irregular. No extra sounds. Abdomen: Soft, nontender. Bowel sounds positive. No organomegaly. No masses or hernia. No rigidi ty or rebound. Extremities: No clubbing or cyanosis. Intact pulses. Skin: No rashes. Neurologic: Alert, awake, and oriented x3. No acute focal deficits appreciated. Investigations: BUN 17, creatinine 1.65 and his troponin is negative. Hemoglobin is 14. Assessment/recommendation: 1.Syncopal episode. The patient has a pacemaker. We will get this device interrogated to evaluate for the presence of cardiac arrhythmias. Obtain echocardiogram and keep monitoring on telemetry and trend cardiac enzymes 2 more sets. Further recommendations to follow. 2.Kidney failure. This patient's blood pressure was too low when he passed out, so this could be de hydration. Recommend gentle IV fluid management and reassess. 3.Hypertension. Blood pressure is on the low side. Hydrate as above and re-evaluate. SR/MODL Voice ID: [id number] Report ID: [id number]
[2022-04-03] MEDS ORDERED: PANTOPRAZOLE 40MG TABLET PO SCH (21:00)
[2022-04-04] MEDS ORDERED: LEVOTHYROXINE SOD 0.075 MG TAB PO SCH (06:00)
[2022-04-04] MEDS ORDERED: THIAMINE HCL 100 MG TABLET PO SCH (09:00)
[2022-04-04] MEDS ORDERED: EZETIMIBE 10 MG TAB PO SCH (09:00)
--- NOTE | 2022-04-04 17:00 | EKG ---
Test Date: 2022-04-02 Test Time: 23:11:53 Conventional Underwriter: NANDO MEASUREMENT RESULTS: Intervals: Rate: 60 TN: 162 QRSD: 108 QT: 454 QTc: 454 [place]: P: -23 TN: 162 QRS: 12 T: 22 INTERPRETIVE STATEMENTS: Electronic atrial pacemaker Compared to ECG 09/22/2021 12:09:50 Sinus tachycardia no longer present ST (T wave) deviation no longer present Electronically Signed On 04-04-22 16:56:07 RECRUITING MANAGER by Cheo Red
[2022-04-05] MEDS ORDERED: LORazepam 2 MG/ML VIAL IV SCH (10:00)
== END 2022-04-03 18:23 | disposition home or self-care (01) ==
LOC: ER 21:57 → 4TH 04-03 00:32
PROVIDERS: ADMIT Internal Medicine; ATTEND Internal Medicine
DX: I10 Essential (primary) hypertension (principal); R56.9 Unspecified convulsions; N19 Unspecified kidney failure; E03.9 Hypothyroidism, unspecified; K21.9 Gastro-esophageal reflux disease without esophagitis; F10.10 Alcohol abuse, uncomplicated; G89.29 Other chronic pain; Z88.8 Allergy status to other drugs, medicaments and biological substances; Z71.41 Alcohol abuse counseling and surveillance of alcoholic; Z95.0 Presence of cardiac pacemaker; Z20.822 Contact with and (suspected) exposure to COVID-19
CPT/HCPCS: 93005; 85025 ×2; 80048 ×2; 36415; 83735 ×2; 84100; 85610; 80061; 80076; 85730; 84443; 81003; 84484; 70450; 72125; 71045; 93880; 87811; J0360; J3411; J7030; G0480; G0378